=== PATIENT | male | born 1980 | race African-American/Black ===

== ENCOUNTER 2019-07-31 17:44 | Emergency (ER) | payer SELFPAY ==
--- NOTE | 2019-07-31 17:52 | EDM.PDOC ---
ED HPI GENERAL MEDICAL PROBLEM - General Chief Complaint: General Stated Complaint: MED CLEAR Time Seen by Provider: 07/31/19 17:50 Source of Information: Reports: Patient History Limitations: Reports: No Limitations - History of Present Illness INITIAL COMMENTS - FREE TEXT/NARRATIVE: HISTORY AND PHYSICAL: History of present illness: Patient is a 39-year-old male who presents to the emergency room by law enforcement for medical screening examination. Patient offers no current complaints and is uncooperative with assessment/history. He denies any systemic complaints. Denies any injury, trauma or falls. Review of systems: As per history of present illness and below otherwise all systems reviewed and negative. Past medical history: As per history of present illness and as reviewed below otherwise noncontributory. Surgical history: As per history of present illness and as reviewed below otherwise noncontributory. Social history: See social history for further information Family history: As per history of present illness and as reviewed below otherwise noncontributory. Physical exam: General: Well-developed and well-nourished 39-year-old male. Alert and oriented. Nontoxic appearing and in no acute distress. HEENT: Atraumatic, normocephalic, pupils equal and reactive bilaterally, negative for conjunctival pallor or scleral icterus, mucous membranes moist, trachea midline. No drooling or trismus noted. No meningeal signs. No hot potato voice noted. Lungs: Clear to auscultation, breath sounds equal bilaterally, chest nontender. Heart: S1S2, regular rate and rhythm without overt murmur Abdomen: Soft, nondistended, nontender. Negative for masses or hepatosplenomegaly. Negative for costovertebral tenderness. Pelvis: Stable nontender. Skin: Intact, warm, dry. No lesions or rashes noted. Extremities: Atraumatic, moves all extremities per self without difficulty or deficits, negative for cords or calf pain. Neurovascular unremarkable. Neuro: Awake, alert, oriented. Cranial nerves II through XII unremarkable. Cerebellum unremarkable. Motor and sensory unremarkable throughout. Exam nonfocal. Notes: Patient refuses any type of diagnostics. He refuses to allow for a blood sugar. Patient will be released into why enforcement custody. Supportive care measures were reviewed and discussed. Voices understanding and is agreeable to plan of care. Denies any further questions or concerns at this time. Diagnostics: Declines Therapeutics: Declined Prescription: None Impression: Encounter for medical screening exam Plan: 1. Follow-up with your primary care provider as we discussed. 2. Return to the ED as needed and as discussed. Definitive disposition and diagnosis as appropriate pending reevaluation and review of above. - Related Data Allergies Allergy/AdvReac Type Severity Reaction Status Date / Time No Known Allergies Allergy Verified 07/31/19 17:52 Home Meds: Home Meds . [Unable to Verify Home Med List] 07/31/19 [History] ED ROS GENERAL - Review of Systems Review Of Systems: ROS reveals no pertinent complaints other than HPI. ED EXAM, GENERAL - Physical Exam Exam: See Below (See dictation) Course - Vital Signs Last Recorded V/S: Last Vital Signs Temp Pulse Resp 20 07/31/19 17:48 BP 172/153 H 07/31/19 17:48 Pulse Ox Departure - Departure Time of Disposition: 17:59 Disposition: Home, Self-Care 01 Clinical Impression: Encounter for medical screening examination - Discharge Information Referrals: PCP,Unknown [Primary Care Provider] - Forms: ED Department Discharge Additional Instructions: The following information is given to patients seen in the emergency department who are being discharged to home. This information is to outline your options for follow-up care. We provide all patients seen in our emergency department with a follow-up referral. The need for follow-up, as well as the timing and circumstances, are variable depending upon the specifics of your emergency department visit. If you don't have a primary care physician on staff, we will provide you with a referral. We always advise you to contact your personal physician following an emergency department visit to inform them of the circumstance of the visit and for follow-up with them and/or the need for any referrals to a consulting specialist. The emergency department will also refer you to a specialist when appropriate. This referral assures that you have the opportunity for follow-up care with a specialist. All of these measure are taken in an effort to provide you with optimal care, which includes your follow-up. Under all circumstances we always encourage you to contact your private physician who remains a resource for coordinating your care. When calling for follow-up care, please make the office aware that this follow-up is from your recent emergency room visit. If for any reason you are refused follow-up, please contact the [facility] Emergency Department at and asked to speak to the emergency department charge nurse. [facility] [address] [place] [address] [facility] [address] [place] [id number] 1. Follow-up with your primary care provider as we discussed. 2. Return to the ED as needed and as discussed.
== END 2019-07-31 18:00 | disposition home or self-care (01) ==
LOC: MW.ED 17:44
DX: Z13.9 Encounter for screening, unspecified (principal)
CPT/HCPCS: 99283

== ENCOUNTER 2019-10-25 20:12 | Emergency (ER) | payer SELFPAY ==
[2019-10-25] MEDS ORDERED: Ketorolac 60 MG/2 ML SDV IM ONE (20:26)
--- NOTE | 2019-10-25 20:26 | EDM.PDOC ---
ED HPI GENERAL MEDICAL PROBLEM - General Chief Complaint: Back Pain or Injury Stated Complaint: BACK PAIN Time Seen by Provider: 10/25/19 20:24 Source of Information: Reports: Patient History Limitations: Reports: No Limitations - History of Present Illness INITIAL COMMENTS - FREE TEXT/NARRATIVE: HISTORY AND PHYSICAL: History of present illness: Patient is a 39-year-old male who presents to the emergency room with complaints of cough, generalized back pain and left elbow pain. 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 He states he has some generalized back pain and left elbow pain whenever he has to perform these activities. He states this has been ongoing for approximately a week but worse within the last 3-4 days. He denies any falls , injury or trauma associated with this pain. Patient states that the cough he is experiencing he describes as harsh and nonproductive. Patient denies any fever, chills, headache, change in vision, syncope or near syncope. Denies any chest pain, back pain, or shortness of breath. Denies any abdominal pain, nausea , vomiting, diarrhea, constipation or dysuria. Has not noted any blood in urine or stool. Patient has been eating and drinking appropriately. Review of systems: As per history of present illness and below otherwise all systems reviewed and negative. Past medical history: As per history of present illness and as reviewed below otherwise noncontributory. Surgical history: As per history of present illness and as reviewed below otherwise noncontributory. Social history: See social history for further information Family history: As per history of present illness and as reviewed below otherwise noncontributory. Physical exam: General: Well-developed and well-nourished 39-year-old male. Alert and oriented. Nontoxic appearing and in no acute distress. HEENT: Atraumatic, normocephalic, pupils equal and reactive bilaterally, negative for conjunctival pallor or scleral icterus, mucous membranes moist, trachea midline. No drooling or trismus noted. No meningeal signs. No hot potato voice noted. Lungs: Clear to auscultation, breath sounds equal bilaterally, chest nontender. Heart: S1S2, regular rate and rhythm without overt murmur Abdomen: Soft, nondistended, nontender. Negative for masses or hepatosplenomegaly. Negative for costovertebral tenderness. Pelvis is stable nontender. C-spine/Back: No pinpoint vertebral tenderness upon palpation. No crepitus, step -offs or obvious deformities. Patient is ambulatory into the emergency room without difficulty or deficit. Able to rock back on heels and walk on toes. Denies any urinary or fecal incontinence. Denies any numbness, tingling or saddle paresthesia. Skin: Intact, warm, dry. No lesions or rashes noted. Extremities: Atraumatic, moves all extremities per self without difficulty or deficits, negative for cords or calf pain. Neurovascular unremarkable. Neuro: Awake, alert, oriented. Cranial nerves II through XII unremarkable. Cerebellum unremarkable. Motor and sensory unremarkable throughout. Exam nonfocal. Notes: When assessing the patient's back pain there is no pinpoint vertebral tenderness. He states the pain is more muscular radiate across the low lumbar region bilaterally. This does not radiate. When he is describing this pain he states that he does not want to lift any more heavy boxes with his work related duties. During the physical exam he is able to move fully without any difficulty or deficits. Do not feel a lumbar x-ray is warranted at this time. Due to longevity of symptoms they will treat with azithromycin. Upon preparing the patient for discharge she states he is unhappy that he did not get an x-ray of his left elbow or low back. I did have a lengthy conversation with him that due to not having an injury and no bony tenderness with palpation this was not warranted at this time. Supportive care measures were reviewed and discussed. Voices understanding and is agreeable to plan of care. Denies any further questions or concerns at this time. Diagnostics: CBC, CMP, Troponin, EKG, CXR Therapeutics: Toradol IM Prescription: Diclofenac Zpak Impression: Bronchitis Lumbago Left elbow pain, overuse Plan: 1. Stop smoking 2. Take the medications as directed. May also take Tylenol as directed with these medications. Gentle heat to the painful areas. May want to consider wearing a compression sleeve for your elbow and back support brace to help with your back pain. 3. Follow up with your primary care provider as we discussed. Return to the ED as needed and as discussed. Definitive disposition and diagnosis as appropriate pending reevaluation and review of above. Left Arm Pain Score (Numeric/FACES): 4 back Pain Score (Numeric/FACES): 5 - Related Data Allergies Allergy/AdvReac Type Severity Reaction Status Date / Time No Known Allergies Allergy Verified 10/25/19 20:16 Home Meds: Home Meds . [No Known Home Meds] 10/25/19 [History] Past Medical History - Past Health History Medical/Surgical History: Denies Medical/Surgical History Cardiovascular History: Reports: Hypertension Respiratory History: Reports: Other (See Below) Other Respiratory History: smoker Gastrointestinal History: Reports: None Genitourinary History: Reports: None Musculoskeletal History: Reports: None Neurological History: Reports: None Psychiatric History: Reports: None Endocrine/Metabolic History: Reports: None Hematologic History: Reports: None Dermatologic History: Reports: None - Infectious Disease History Infectious Disease History: Reports: Chicken Pox Social & Family History - Family History Family Medical History: Noncontributory - Tobacco Use Smoking Status *Q: Current Every Day Smoker Years of Tobacco use: 25 Packs/Tins Daily: 1 - Recreational Drug Use Recreational Drug Use: No ED ROS GENERAL - Review of Systems Review Of Systems: Comprehensive ROS is negative, except as noted in HPI. ED EXAM, GENERAL - Physical Exam Exam: See Below (See dictation) Course - Vital Signs Last Recorded V/S: Last Vital Signs Temp 96.6 F 10/25/19 20:17 Pulse 84 10/25/19 20:17 Resp 18 10/25/19 20:17 BP 161/118 H 10/25/19 20:17 Pulse Ox 94 L 10/25/19 20:17 - Orders/Labs/Meds Orders: Active Orders 24 hr Category Date Time Status EKG 12 Lead [EKG Documentation Completion] [RC] STAT Care 10/25/19 20:23 Active Chest 2V [CR] Stat Exams 10/25/19 20:23 Taken Labs: Laboratory Tests 10/25/19 10/25/19 Range/Units 21:00 21:00 WBC 2.93 L (4.0-11.0) K/uL RBC 5.03 (4.50-5.90) M/uL Hgb 16.0 (13.0-17.0) g/dL Hct 44.3 (38.0-50.0) % MCV 88.1 (80.0-98.0) fL MCH 31.8 (27.0-32.0) pg MCHC 36.1 (31.0-37.0) g/dL RDW Std Deviation 40.5 (28.0-62.0) fl RDW Coeff of Liliana 13 (11.0-15.0) % Plt Count 244 (150-400) K/uL MPV 10.00 (7.40-12.00) fL Neut % (Auto) 26.7 L (48.0-80.0) % Lymph % (Auto) 60.8 H (16.0-40.0) % [place] % (Auto) 11.9 (0.0-15.0) % Eos % (Auto) 0.3 (0.0-7.0) % Baso % (Auto) 0.3 (0.0-1.5) % Neut # (Auto) 0.8 L (1.4-5.7) K/uL Lymph # (Auto) 1.8 (0.6-2.4) K/uL [place] # (Auto) 0.4 (0.0-0.8) K/uL Eos # (Auto) 0.0 (0.0-0.7) K/uL Baso # (Auto) 0.0 (0.0-0.1) K/uL Nucleated RBC % 0.0 /100WBC Nucleated RBCs # 0 K/uL Sodium 135 L (136-148) mmol/L Potassium 3.7 (3.5-5.1) mmol/L Chloride 96 L (98-107) mmol/L Carbon Dioxide 28.5 (21.0-32.0) mmol/L BUN 13 (7.0-18.0) mg/dL Creatinine 1.5 H (0.8-1.3) mg/dL Est Cr Clr Drug Dosing TNP Estimated GFR (MDRD) > 60.0 ml/min Glucose 148 H (74-106) mg/dL Calcium 8.2 L (8.5-10.1) mg/dL Total Bilirubin 0.5 (0.2-1.0) mg/dL AST 80 H (15-37) IU/L ALT 58 (14-63) IU/L Alkaline Phosphatase 103 (46-116) U/L Troponin I < 0.050 (0.000-0.056) ng/mL Total Protein 8.0 (6.4-8.2) g/dL Albumin 3.6 (3.4-5.0) g/dL Globulin 4.4 H (2.6-4.0) g/dL Albumin/Globulin Ratio 0.8 L (0.9-1.6) Meds: Medications Discontinued Medications Generic Name Dose Route Start Last Admin Trade Name Shaan PRN Reason Stop Dose Admin Ketorolac Tromethamine 60 mg 10/25/19 20:26 10/25/19 20:37 Toradol IM 10/25/19 20:27 60 mg ONETIME ONE Administration Departure - Departure Time of Disposition: 21:45 Disposition: Home, Self-Care 01 Clinical Impression: Bronchitis Lumbago Qualifiers: Chronicity: unspecified Back pain laterality: bilateral Sciatica presence: without sciatica Qualified Code(s): M54.5 - Low back pain Overuse syndrome of elbow Qualifiers: Encounter type: initial encounter Laterality: left Qualified Code(s): S56.912A - Strain of unspecified muscles, fascia and tendons at forearm level, left arm, initial encounter - Discharge Information Referrals: PCP,None [Primary Care Provider] - Forms: ED Department Discharge Additional Instructions: The following information is given to patients seen in the emergency department who are being discharged to home. This information is to outline your options for follow-up care. We provide all patients seen in our emergency department with a follow-up referral. The need for follow-up, as well as the timing and circumstances, are variable depending upon the specifics of your emergency department visit. If you don't have a primary care physician on staff, we will provide you with a referral. We always advise you to contact your personal physician following an emergency department visit to inform them of the circumstance of the visit and for follow-up with them and/or the need for any referrals to a consulting specialist. The emergency department will also refer you to a specialist when appropriate. This referral assures that you have the opportunity for follow-up care with a specialist. All of these measure are taken in an effort to provide you with optimal care, which includes your follow-up. Under all circumstances we always encourage you to contact your private physician who remains a resource for coordinating your care. When calling for follow-up care, please make the office aware that this follow-up is from your recent emergency room visit. If for any reason you are refused follow-up, please contact the [facility] Emergency Department at and asked to speak to the emergency department charge nurse. [facility] [address] [place] [address] [facility] [address] [place] [id number] 1. Stop smoking 2. Take the medications as directed. May also take Tylenol as directed with these medications. Gentle heat to the painful areas. May want to consider wearing a compression sleeve for your elbow and back support brace to help with your back pain. 3. Follow up with your primary care provider as we discussed. Return to the ED as needed and as discussed. - My Orders Last 24 Hours: My Active Orders 10/25/19 20:23 EKG 12 Lead [EKG Documentation Completion] [RC] STAT Chest 2V [CR] Stat - Assessment/Plan Last 24 Hours: My Active Orders 10/25/19 20:23 EKG 12 Lead [EKG Documentation Completion] [RC] STAT Chest 2V [CR] Stat
[2019-10-25 21:35] LABS: BLOOD UREA NITROGEN,BUN 13 mg/dL (7.0-18.0); CARBON DIOXIDE,CO2 28.5 mmol/L (21.0-32.0); CHLORIDE,CL 96 mmol/L (98-107); GLUCOSE RANDOM 148 mg/dL (74-106); POTASSIUM,K 3.7 mmol/L (3.5-5.1); SODIUM,NA 135 mmol/L (136-148)
--- NOTE | 2019-10-25 22:05 | CR ---
Indication: Chest pain Technique: Chest 2 views Comparison: None Findings: Cardiovascular and mediastinum: Heart size and vasculature are normal in caliber and appearance. Lungs and pleural spaces: Lungs are clear. No sign of infiltrate or mass. No sign of pleural effusion. No pneumothorax. Bones and soft tissues: No significant findings. Impression: Unremarkable two view chest. Dictated by Dwayne Maldonado MD @ Oct 25 2019 10:02PM Signed by Dr. Dwayne Maldonado @ Oct 25 2019 10:04PM
== END 2019-10-25 22:01 | disposition home or self-care (01) ==
LOC: MW.ED 20:12
DX: J40 Bronchitis, not specified as acute or chronic (principal); M54.5 Low back pain; M70.80 Other soft tissue disorders related to use, overuse and pressure of unspecified site; F17.210 Nicotine dependence, cigarettes, uncomplicated
CPT/HCPCS: 36415; 71046; 80053; 84484; 85025; 87804; 93005; 96372; 99284; J1885; 99283

== ENCOUNTER 2019-11-09 02:46 | Emergency (ER) | payer SELFPAY ==
[2019-11-09] MEDS ORDERED: Sodium Chloride 0.9% 2.5 ML Syringe FLUSH PRN (03:08)
[2019-11-09] MEDS ORDERED: Alum Hydrox/Mag Hydrox/Simeth 15 ML, Metoclopramide 5 MG, Lidocaine 2% 5 ML PO ONE ×3 (03:08)
[2019-11-09] MEDS ORDERED: Pantoprazole 80 MG in Sodium Chloride 0.9% 20 ML IVPUSH ONE (03:08)
[2019-11-09] MEDS ORDERED: Sodium Chloride 0.9% 10 ML Syringe FLUSH PRN (03:08)
[2019-11-09] MEDS ORDERED: Ondansetron 4 MG/2 ML SDV IVPUSH ONE (03:08)
[2019-11-09] MEDS ORDERED: MVI, Adult with Vitamin K 10 ML, Thiamine 100 MG, Folic Acid 1 MG in Sodium Chloride 0.... IV ONE ×4 (03:08)
--- NOTE | 2019-11-09 03:14 | EDM.PDOC ---
ED HPI GENERAL MEDICAL PROBLEM - General Chief Complaint: Chest Pain Stated Complaint: COUGHING Time Seen by Provider: 11/09/19 03:02 - History of Present Illness INITIAL COMMENTS - FREE TEXT/NARRATIVE: HISTORY AND PHYSICAL: History of present illness: The patient is a 39-year-old male who presents with complaints of mid chest burning like when he had bronchitis which has been ongoing since Saturday, 2-1/2 days. He says he doesn't have any abdominal pain fevers and is not really coughing just intermittently and he has this burning like sensation which is very uncomfortable in his mid chest. It does not radiate to his arms jaw and it does not localize right or left. He also admits to me that he is a daily drinker of alcohol and he vomits intermittently pretty much daily and his last episode of vomiting was right before he came here. He does not take any over-the -counter antacids or Pepto-Bismol to try to help with his acid stomach. He says that he last drank about 18-24 hours ago. He says he has no flank pain he is not passing out or blacking out and he has no cardiac history. He has no history of diabetes and he says that he knows that his blood pressure is elevated but he has not seen a provider for follow-up area area he says that when he vomits the pain does get worse. He says he feels like he can't take a deep breath and he feels similarly to when he had bronchitis because his lungs were burning at that time. Review of systems: As per history of present illness and below otherwise all systems reviewed and negative. Past medical history: As per history of present illness and as reviewed below otherwise noncontributory. Surgical history: As per history of present illness and as reviewed below otherwise noncontributory. Social history: No reported history of drug or alcohol abuse. Family history: As per history of present illness and as reviewed below otherwise noncontributory. Physical exam: General: Well-developed well-nourished man who is nontoxic and very exaggerated on my exam and vital signs are noted by me HEENT: Atraumatic, normocephalic, pupils reactive, negative for conjunctival pallor or scleral icterus, mucous membranes moist, throat clear, neck supple, nontender, trachea midline. Lungs: Clear to auscultation, breath sounds equal bilaterally, chest nontender. No wheezing stridor or work of breathing. There is no reproducible tenderness with palpation of the chest wall and no crepitus is appreciated defects or deformities. Heart: S1S2, regular, negative for clicks, rubs, or JVD. Abdomen: Soft, nondistended, nontender. Negative for masses or hepatosplenomegaly. Negative for costovertebral tenderness. Pelvis: Stable nontender. Genitourinary: Deferred. Rectal: Deferred. Extremities: Atraumatic, negative for cords or calf pain. Neurovascular unremarkable. No pedal edema or leg asymmetry Neuro: Awake, alert, oriented. Cranial nerves II through XII unremarkable. Cerebellum unremarkable. Motor and sensory unremarkable throughout. Exam nonfocal. He is not tremulous or shaky on my evaluation Diagnostics: EKG CBC CMP amylase lipase INR magnesium troponin alcohol level chest x-ray Therapeutics: IV O2 monitor IV fluids banana bag protonix Zofran GI cocktail He is feeling much improved here in the ED and is aware of all testing results and need for follow-up and I will give him prescription for Protonix Carafate and Zofran. I've advised him on dietary management and to reduce Paul foods fatty foods alcohol and caffeine consumption. Impression: Atypical chest pain/esophagitis like pain, history of episodic vomiting and alcohol use and abuse Definitive disposition and diagnosis as appropriate pending reevaluation and review of above. - Related Data Allergies Allergy/AdvReac Type Severity Reaction Status Date / Time No Known Allergies Allergy Verified 11/09/19 02:51 Home Meds: Home Meds . [No Known Home Meds] 10/25/19 [History] Past Medical History - Past Health History Medical/Surgical History: Denies Medical/Surgical History Cardiovascular History: Reports: Hypertension Respiratory History: Reports: Other (See Below) Other Respiratory History: smoker Gastrointestinal History: Reports: None Genitourinary History: Reports: None Musculoskeletal History: Reports: None Neurological History: Reports: None Psychiatric History: Reports: None Endocrine/Metabolic History: Reports: None Hematologic History: Reports: None Dermatologic History: Reports: None - Infectious Disease History Infectious Disease History: Reports: Chicken Pox Social & Family History - Family History Family Medical History: Noncontributory - Tobacco Use Smoking Status *Q: Current Every Day Smoker Years of Tobacco use: 25 Packs/Tins Daily: 0.5 ED ROS GENERAL - Review of Systems Review Of Systems: Comprehensive ROS is negative, except as noted in HPI. ED EXAM, GENERAL - Physical Exam Exam: See Below (see Dictation) Course - Vital Signs Last Recorded V/S: Last Vital Signs Temp 36.4 C 11/09/19 04:32 Pulse 84 11/09/19 04:32 Resp 20 11/09/19 04:32 BP 140/99 H 11/09/19 04:32 Pulse Ox 95 11/09/19 04:32 - Orders/Labs/Meds Orders: Active Orders 24 hr Category Date Time Status Cardiac Monitoring [RC] . DIRECTED Care 11/09/19 03:02 Active EKG Documentation Completion [RC] STAT Care 11/09/19 03:02 Active Oxygen Therapy, ED [RC] ASDIRECTED Care 11/09/19 03:02 Active Pulse Oximetry [RC] ASDIRECTED Care 11/09/19 03:02 Active Sodium Chloride 0.9% [Normal Saline] 500 ml Med 11/09/19 03:15 Active IV STAT Sodium Chloride 0.9% [Saline Flush] Med 11/09/19 03:08 Active 10 ml FLUSH ASDIRECTED PRN Sodium Chloride 0.9% [Saline Flush] Med 11/09/19 03:08 Active 2.5 ml FLUSH ASDIRECTED PRN Saline Lock Insert [OM.PC] Stat Oth 11/09/19 03:07 Ordered Medication Orders Sodium Chloride (Normal Saline) 500 mls @ 999 mls/hr IV STAT MARY Last Admin: 11/09/19 03:27 Dose: 999 mls/hr Sodium Chloride (Saline Flush) 10 ml FLUSH ASDIRECTED PRN PRN Reason: Keep Vein Open Sodium Chloride (Saline Flush) 2.5 ml FLUSH ASDIRECTED PRN PRN Reason: Keep Vein Open Labs: Laboratory Tests 11/09/19 11/09/19 11/09/19 Range/Units 02:50 02:50 02:50 WBC 5.17 (4.0-11.0) K/uL RBC 5.15 (4.50-5.90) M/uL Hgb 16.6 (13.0-17.0) g/dL Hct 45.4 (38.0-50.0) % MCV 88.2 (80.0-98.0) fL MCH 32.2 H (27.0-32.0) pg MCHC 36.6 (31.0-37.0) g/dL RDW Std Deviation 42.0 (28.0-62.0) fl RDW Coeff of Liliana 13 (11.0-15.0) % Plt Count 349 (150-400) K/uL MPV 10.10 (7.40-12.00) fL Neut % (Auto) 34.4 L (48.0-80.0) % Lymph % (Auto) 48.0 H (16.0-40.0) % [place] % (Auto) 16.2 H (0.0-15.0) % Eos % (Auto) 0.2 (0.0-7.0) % Baso % (Auto) 1.2 (0.0-1.5) % Neut # (Auto) 1.8 (1.4-5.7) K/uL Lymph # (Auto) 2.5 H (0.6-2.4) K/uL [place] # (Auto) 0.8 (0.0-0.8) K/uL Eos # (Auto) 0.0 (0.0-0.7) K/uL Baso # (Auto) 0.1 (0.0-0.1) K/uL Nucleated RBC % 0.0 /100WBC Nucleated RBCs # 0 K/uL INR 0.99 Sodium 142 (136-148) mmol/L Potassium 4.0 (3.5-5.1) mmol/L Chloride 105 (98-107) mmol/L Carbon Dioxide 25.7 (21.0-32.0) mmol/L BUN 19 H (7.0-18.0) mg/dL Creatinine 1.5 H (0.8-1.3) mg/dL Est Cr Clr Drug Dosing TNP Estimated GFR (MDRD) 51.6 ml/min Glucose 106 (74-106) mg/dL Calcium 8.2 L (8.5-10.1) mg/dL Magnesium 1.9 (1.8-2.4) mg/dL Total Bilirubin 0.9 (0.2-1.0) mg/dL AST 69 H (15-37) IU/L ALT 63 (14-63) IU/L Alkaline Phosphatase 99 (46-116) U/L Troponin I < 0.050 (0.000-0.056) ng/mL Total Protein 7.5 (6.4-8.2) g/dL Albumin 3.6 (3.4-5.0) g/dL Globulin 3.9 (2.6-4.0) g/dL Albumin/Globulin Ratio 0.9 (0.9-1.6) Amylase 106 (25-115) U/L Lipase 210 (73-393) U/L Ethyl Alcohol 260 mg/dL Meds: Medications Generic Name Dose Route Start Last Admin Trade Name Freq PRN Reason Stop Dose Admin Sodium Chloride 500 mls @ 999 mls/hr 11/09/19 03:15 11/09/19 03:27 Normal Saline IV 999 mls/hr STAT MARY Administration Sodium Chloride 10 ml 11/09/19 03:08 Saline Flush FLUSH ASDIRECTED PRN Keep Vein Open Sodium Chloride 2.5 ml 11/09/19 03:08 Saline Flush FLUSH ASDIRECTED PRN Keep Vein Open Discontinued Medications Generic Name Dose Route Start Last Admin Trade Name Freq PRN Reason Stop Dose Admin Al Hydroxide/Mg Hydroxide 15 0 ml 11/09/19 03:08 11/09/19 03:27 ml/ Metoclopramide HCl 5 mg/ PO 11/09/19 03:09 1 each Lidocaine HCl 5 ml ONETIME ONE Administration Multivitamins/Minerals 10 ml/ 1,011.2 mls @ 999 mls/hr 11/09/19 03:08 03:35 Thiamine HCl 100 mg/ Folic IV 11/09/19 04:08 999 mls/hr Acid 1 mg/ Sodium Chloride ONETIME ONE Administration Pantoprazole Sodium 80 mg/ 20 mls @ 420 mls/hr 11/09/19 03:08 11/09/19 03:27 Sodium Chloride IVPUSH 11/09/19 03:10 420 mls/hr ONETIME ONE Administration Ondansetron HCl 4 mg 11/09/19 03:08 11/09/19 03:27 Zofran IVPUSH 11/09/19 03:09 4 mg ONETIME ONE Administration Departure - Departure Time of Disposition: 04:52 Disposition: Home, Self-Care 01 Condition: Good Clinical Impression: Atypical chest pain, Alcohol abuse Vomiting Qualifiers: Vomiting type: unspecified Vomiting Intractability: non-intractable Nausea presence: with nausea Qualified Code(s): R11.2 - Nausea with vomiting, unspecified - Discharge Information Referrals: PCP,None [Primary Care Provider] - Forms: ED Department Discharge Additional Instructions: The following information is given to patients seen in the emergency department who are being discharged to home. This information is to outline your options for follow-up care. We provide all patients seen in our emergency department with a follow-up referral. The need for follow-up, as well as the timing and circumstances, are variable depending upon the specifics of your emergency department visit. If you don't have a primary care physician on staff, we will provide you with a referral. We always advise you to contact your personal physician following an emergency department visit to inform them of the circumstance of the visit and for follow-up with them and/or the need for any referrals to a consulting specialist. The emergency department will also refer you to a specialist when appropriate. This referral assures that you have the opportunity for followup care with a specialist. All of these measure are taken in an effort to provide you with optimal care, which includes your followup. Under all circumstances we always encourage you to contact your private physician who remains a resource for coordinating your care. When calling for followup care, please make the office aware that this follow-up is from your recent emergency room visit. If for any reason you are refused follow-up, please contact the [facility] emergency department at and ask to speak to the emergency department charge nurse. [facility] Primary care- Internal Medicine and Family [facility] [address] [place] [id number] [facility] Specialty Care-General Surgery Professional Building [address] [place] [id number] Please avoid alcohol consumption and caffeine use and take all medications as prescribed . Use Zofran as needed for nausea and vomiting. Please call and connect with one of our clinic providers for further evaluation and care of these symptoms. Push hydration such as water juices and Gatorade and return to ER as needed and as discussed Sepsis Event Note - Evaluation Sepsis Screening Result: No Definite Risk - Focused Exam Vital Signs: Vital Signs Temp Pulse Resp BP Pulse Ox Pulse Ox 11/09/19 04:32 36.4 C 84 20 140/99 H 95 11/09/19 03:02 98 11/09/19 02:47 36.1 C 87 20 164/107 H 96 Date Exam was Performed: 11/09/19 Time Exam was Performed: 04:51 - My Orders Last 24 Hours: My Active Orders 11/09/19 03:02 Cardiac Monitoring [RC] . DIRECTED EKG Documentation Completion [RC] STAT Oxygen Therapy, ED [RC] ASDIRECTED Pulse Oximetry [RC] ASDIRECTED 11/09/19 03:07 Saline Lock Insert [OM.PC] Stat 11/09/19 03:08 Sodium Chloride 0.9% [Saline Flush] 10 ml FLUSH ASDIRECTED PRN Sodium Chloride 0.9% [Saline Flush] 2.5 ml FLUSH ASDIRECTED PRN 11/09/19 03:15 Sodium Chloride 0.9% [Normal Saline] 500 ml IV STAT - Assessment/Plan Last 24 Hours: My Active Orders 11/09/19 03:02 Cardiac Monitoring [RC] . DIRECTED EKG Documentation Completion [RC] STAT Oxygen Therapy, ED [RC] ASDIRECTED Pulse Oximetry [RC] ASDIRECTED 11/09/19 03:07 Saline Lock Insert [OM.PC] Stat 11/09/19 03:08 Sodium Chloride 0.9% [Saline Flush] 10 ml FLUSH ASDIRECTED PRN Sodium Chloride 0.9% [Saline Flush] 2.5 ml FLUSH ASDIRECTED PRN 11/09/19 03:15 Sodium Chloride 0.9% [Normal Saline] 500 ml IV STAT
[2019-11-09] MEDS ORDERED: Sodium Chloride 0.9% 500 ML IV SCH (03:15)
[2019-11-09 03:25] LABS: BLOOD UREA NITROGEN,BUN 19 mg/dL (7.0-18.0); CARBON DIOXIDE,CO2 25.7 mmol/L (21.0-32.0); CHLORIDE,CL 105 mmol/L (98-107); GLUCOSE RANDOM 106 mg/dL (74-106); LIPASE 210 U/L (73-393); SODIUM,NA 142 mmol/L (136-148)
--- NOTE | 2019-11-09 04:36 | CR ---
HISTORY: Shortness of breath. COMPARISON: 10/25/2019. FINDINGS: Single frontal view of the chest. The lungs are clear. Costophrenic angles sharp. Heart size and pulmonary vascularity are within normal limits. Bony thorax intact. Dictated by Eda Lyon MD @ Nov 09 2019 4:35AM Signed by Dr. Eda Lyon @ Nov 09 2019 4:35AM
== END 2019-11-09 05:01 | disposition home or self-care (01) ==
LOC: MW.ED 02:46
DX: R07.89 Other chest pain (principal); F10.10 Alcohol abuse, uncomplicated; R11.2 Nausea with vomiting, unspecified; I10 Essential (primary) hypertension; F17.210 Nicotine dependence, cigarettes, uncomplicated; Y90.8 Blood alcohol level of 240 mg/100 ml or more
CPT/HCPCS: 36415; 71045; 80053; 80320; 82150; 83690; 83735; 84484; 85025; 85610; 93005; 96365; 96375; 99285; A9270; C9113; J2405; J3411; J7030; J7040; G0480

== ENCOUNTER 2019-11-24 22:52 | Emergency (ER) | payer SELFPAY ==
[2019-11-24] MEDS ORDERED: Diphtheria,Pertussis(Acell),Tetanus Vaccine 0.5 ML Syringe IM ONE (23:16)
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
== END 2019-11-24 23:35 ==
LOC: MW.ED 22:52
DX: S00.83XA Contusion of other part of head, initial encounter (principal); S60.511A Abrasion of right hand, initial encounter; S60.512A Abrasion of left hand, initial encounter; I10 Essential (primary) hypertension; F17.210 Nicotine dependence, cigarettes, uncomplicated; W00.0XXA Fall on same level due to ice and snow, initial encounter
CPT/HCPCS: 90471; 99282; 99283

== ENCOUNTER 2020-07-30 02:12 | Emergency (ER) | payer MEDICAID ==
--- NOTE | 2020-07-30 02:58 | EDM.PDOC ---
ED HPI GENERAL MEDICAL PROBLEM - General Chief Complaint: General Stated Complaint: BLOOD PRESSURE CONCERNS Time Seen by Provider: 07/30/20 02:13 Source of Information: Reports: Patient, Old Records History Limitations: Reports: No Limitations - History of Present Illness INITIAL COMMENTS - FREE TEXT/NARRATIVE: 40-year-old male with a past medical history of alcohol abuse and anxiety and hypertension presenting for evaluation of erectile dysfunction. He is requesting a prescription for either Cialis or Viagra. He states that he was too embarrassed to bring this topic up to his family doctor at his most recent clinic appointment several days ago. He has no complaints at this point, denies any chest discomfort, shortness of breath, headache, vision changes, or lower extremity edema. He has been taking his antihypertensive medications as prescribed. Past medical history: Reviewed, no additional pertinent history. Surgical history: Reviewed in system, no additional pertinent history. Social history: Reviewed in system, no additional pertinent history. Family history: Reviewed in system, no additional pertinent history. PHYSICAL EXAM Vital signs reviewed. Nursing notes reviewed. Constitutional: Awake, alert, non-distressed. Head: Normocephalic, atraumatic. Eyes: EOMI, conjunctiva normal, no discharge, no scleral icterus. Ears, Nose, Throat: External ears and nose normal, moist oral mucosa. Cardiovascular: 2+ radial pulse, capillary refill less than 2 seconds. RRR no MRG Pulmonary: normal work of breathing, no accessory muscle use. CTA BL Abdomen/GI: Soft, nontender, nondistended, no guarding or rigidity, no masses. Musculoskeletal: No deformities. Integumentary: Appropriate color for ethnicity, warm, dry, no pallor or jaundice, no rash. Neurologic: Alert, answering questions appropriately, normal speech, no facial droop, moving all extremities well. Psychiatric: Appropriate mood and affect, normal thought process. - Related Data Allergies Allergy/AdvReac Type Severity Reaction Status Date / Time No Known Allergies Allergy Verified 07/30/20 02:27 Home Meds: Home Meds ALPRAZolam [Xanax] 2 mg PO ASDIRECTED PRN 07/30/20 [History] amLODIPine [Norvasc] 5 mg PO DAILY 07/30/20 [History] Past Medical History - Past Health History Medical/Surgical History: Denies Medical/Surgical History HEENT History: Reports: None Cardiovascular History: Reports: Hypertension Respiratory History: Reports: Other (See Below) Other Respiratory History: smoker Gastrointestinal History: Reports: None Genitourinary History: Reports: None Musculoskeletal History: Reports: None Neurological History: Reports: None Psychiatric History: Reports: None Endocrine/Metabolic History: Reports: None Hematologic History: Reports: None Dermatologic History: Reports: None - Infectious Disease History Infectious Disease History: Reports: Chicken Pox - Past Surgical History Musculoskeletal Surgical History: Reports: Other (See Below) Other Musculoskeletal Surgeries/Procedures:: tib fib fx in 2011 Social & Family History - Family History Family Medical History: Noncontributory - Tobacco Use Smoking Status *Q: Former Smoker Used Tobacco, but Quit: Yes Month/Year Tobacco Last Used: 2018 - Caffeine Use Caffeine Use: Reports: None - Recreational Drug Use Recreational Drug Use: No ED ROS GENERAL - Review of Systems Review Of Systems: See Below ED EXAM, GENERAL - Physical Exam Exam: See Below Course - Vital Signs Text/Narrative:: 40-year-old male presenting with request for erectile dysfunction medication prescription. I explained that this is best handled by primary medicine clinic/family medicine physician. I explained that this is not something that we typically prescribe in the emergency department and needs to be prescribed in the primary care setting given that he recently started antihypertensive medications. I encouraged the patient to call his family medicine clinic on Saturday to see if he can have a follow-up appointment scheduled, also provided recommendations about telemedicine primary care practices that would be better suited for his request. No evidence of an acute emergency medical condition at this point. Stable to discharge home with outpatient primary care follow-up. Last Recorded V/S: Last Vital Signs Temp 36.6 C 07/30/20 02:24 Pulse 100 07/30/20 03:04 Resp 18 07/30/20 03:04 BP 168/107 H 07/30/20 03:04 Pulse Ox 97 07/30/20 03:04 Departure - Departure Time of Disposition: 02:57 Disposition: Home, Self-Care 01 Condition: Good Clinical Impression: Erectile dysfunction Qualifiers: Erectile dysfunction type: unspecified Qualified Code(s): N52.9 - Male erectile dysfunction, unspecified Hypertension Qualifiers: Hypertension type: essential hypertension Qualified Code(s): I10 - Essential (primary) hypertension - Discharge Information *PRESCRIPTION DRUG MONITORING PROGRAM REVIEWED*: Not Applicable *COPY OF PRESCRIPTION DRUG MONITORING REPORT IN PATIENT PAZ: Not Applicable Instructions: Erectile Dysfunction, Managing Your Hypertension Referrals: Flora Steiner NP [Primary Care Provider] - Forms: ED Department Discharge Additional Instructions: I recommend you follow-up with your family medicine clinic in the next few days for further evaluation of your concerns. Please return the emergency department immediately if your symptoms worsen or if you feel worse. Thank you for choosing the [facility] emergency department in [place] for your medical needs today. It was a pleasure caring for you. The following information is given to patients seen in the emergency department who are being discharged. This information is to outline your options for follow-up care. We provide all patients seen in our emergency department with a follow-up referral. The need for follow-up, as well as the timing and circumstances, are variable depending upon the specifics of your emergency department visit. If you don't have a primary care physician on staff, we will provide you with a referral. We always advise you to contact your personal physician following an emergency department visit to inform them of the circumstance of the visit and for follow-up with them and/or the need for any referrals to a consulting specialist. The emergency department will also refer you to a specialist when appropriate. This referral assures that you have the opportunity for follow-up care with a specialist. All of these measure are taken in an effort to provide you with optimal care, which includes your follow-up. Under all circumstances we always encourage you to contact your private physician who remains a resource for coordinating your care. When calling for follow-up care, please make the office aware that this follow-up is from your recent emergency room visit. If for any reason you are refused follow-up, please contact the [facility] Emergency Department at and asked to speak to the emergency department charge nurse. If you do not have a primary care physician that is caring for you, you can contact these clinics below to set up an appointment to establish care: [facility] - Primary Care [address] [place] [id number] [facility] [address] [place] [id number] Sepsis Event Note (ED) - Evaluation Sepsis Screening Result: No Definite Risk - Focused Exam Vital Signs: Vital Signs Temp Pulse Resp BP Pulse Ox 07/30/20 03:04 100 18 168/107 H 97 07/30/20 02:33 166/114 H 07/30/20 02:24 36.6 C 104 H 18 181/119 H 98
== END 2020-07-30 03:05 | disposition home or self-care (01) ==
LOC: MW.ED 02:12
DX: N52.9 Male erectile dysfunction, unspecified (principal); I10 Essential (primary) hypertension; Z79.899 Other long term (current) drug therapy; Z87.891 Personal history of nicotine dependence
CPT/HCPCS: 99282; 99283

== ENCOUNTER 2020-08-26 05:41 | Emergency (ER) | payer MEDICAID ==
[2020-08-26] MEDS ORDERED: amLODIPine 5 MG Tab PO ONE (06:02)
--- NOTE | 2020-08-26 06:07 | EDM.PDOC ---
ED HPI GENERAL MEDICAL PROBLEM - General Chief Complaint: Cardiovascular Problem Stated Complaint: HBP Time Seen by Provider: 08/26/20 06:01 - History of Present Illness INITIAL COMMENTS - FREE TEXT/NARRATIVE: CHIEF COMPLAINT(S): Hypertension HISTORY OF PRESENT ILLNESS: This is a 40-year-old man with a past medical history of hypertension and erectile dysfunction who comes to the emergency department with a chief complaint of hypertension. Per the patient: He smelled something odd in his penitentiary cell and he started to feel like he was short of breath. He states that it immediately upon exiting the penitentiary cell he felt better and his symptoms resolved. He denies any chest pain, diaphoresis, nausea or vomiting. He states that they checked his blood pressure and is found to be elevated with systolics in the 170s. This was reiterated by the penitentiary caregiver who is in presents. He currently denies any headache, blurry vision, numbness, tingling, or weakness. He denies any current chest pain, shortness of breath. He denies any urinary issues. He denies any other symptoms. The patient also has a history of alcohol abuse. His last drink was approximately 8 days ago. He denies any history of alcohol withdrawal or alcohol withdrawal seizures. REVIEW OF SYSTEMS: Constitutional: Denies fever, chills. Eyes: Denies eye pain Ears, Nose, Mouth, & Throat: Denies earache, blurry vision Cardiovascular: Denies chest pain Respiratory: Denies shortness of breath Gastrointestinal: Denies Nausea, vomiting, diarrhea, hematochezia. Genitourinary: Denies hematuria Skin:Denies a rash Neurological: Denies blurred vision, numbness, tingling, weakness Psychiatric: Denies depression PAST MEDICAL HISTORY: As per history of present illness and as reviewed below otherwise noncontributory. SURGICAL HISTORY: As per history of present illness and as reviewed below otherwise noncontributory. SOCIAL HISTORY: As per history of present illness and as reviewed below otherwise noncontributory. FAMILY HISTORY: As per history of present illness and as reviewed below otherwise noncontributory. EXAMINATION OF ORGAN SYSTEMS/BODY AREAS: Constitutional: Blood pressure was 177/128, heart rate 99, respiratory rate 18 with an oxygen saturation 98% on room air. Temperature 37.2 General: Overall well-appearing man who is in no acute distress Psychiatric: Appropriate mood and affect. Appears mildly anxious. Pupils are e qual round and reactive to light. Extraocular movements intact. Eyes: No scleral icterus or conjunctival erythema ENMT: Moist mucous membranes. No pharyngeal erythema tongue protrudes midline. No tongue fasciculations. Cardiovascular: Regular, rate, and rhythym. No gallops, murmurs, or rubs. Bilateral upper extremity pulses symmetric and intact. No peripheral edema. No JVD. Respiratory: Lungs clear to auscultation bilaterally. No wheezes, rales, or rhonchi. Gastrointestinal: Soft, non-tender, non-distended. Normoactive bowel sounds Genitourinary: No suprapubic tenderness Musculoskeletal: Normal range of motion. Skin: No lesions or abrasions. Neurological: AOx4. CN grossly intact. Stregth 5/5 in bilateral upper and lower extremity. Sensation is intact bilaterally in upper and lower extremity. Gait appears normal. MEDICAL DECISION MAKING AND COURSE IN THE ED WITH INTERPRETATION/REVIEW OF DIAGNOSTIC STUDIES: This is a 40-year-old man with a past medical history of hypertension who comes to the emergency department with hypertension after episode of what appears to be a panic attack while in his penitentiary cell who is currently asymptomatic with continued hypertension. I did review the patient's chart and he just recently started on amlodipine 5 mg p.o. His systolics have been in the similar range in the past. At this time I do believe this is secondary to hypertension and likely exacerbated by anxiety. I will provide the patient with 5 mg of amlodipine p.o. and increase his home dose to 10 mg daily given the continued hypertension at the patient has been on this medication for approximately 2 weeks. I did discuss this with the patient and his caregiver at bedside. I do not believe any other labs or imaging are indicated at this time. He is to return for any new or worsening symptoms. Patient was amenable to discharge. DISPOSITION: The patient was discharged to penitentiary in stable condition. The patient will follow-up with his primary care physician as needed CONDITION: Good PROCEDURES: None FINAL IMPRESSION(S)/DIAGNOSES: 1. Uncontrolled hypertension Ruy Barron M.D. - Related Data Allergies Allergy/AdvReac Type Severity Reaction Status Date / Time No Known Allergies Allergy Verified 08/26/20 05:54 Home Meds: Home Meds ALPRAZolam [Xanax] 2 mg PO ASDIRECTED PRN 09/05/20 [History] amLODIPine [Norvasc] 5 mg PO DAILY 07/30/20 [History] amLODIPine [Norvasc] 10 mg PO DAILY 30 Days #60 tab 08/26/20 [Rx] Past Medical History - Past Health History Medical/Surgical History: Denies Medical/Surgical History HEENT History: Reports: None Cardiovascular History: Reports: Hypertension Respiratory History: Reports: Other (See Below) Other Respiratory History: smoker Gastrointestinal History: Reports: None Genitourinary History: Reports: None Musculoskeletal History: Reports: None Neurological History: Reports: None Psychiatric History: Reports: None Endocrine/Metabolic History: Reports: None Hematologic History: Reports: None Dermatologic History: Reports: None - Infectious Disease History Infectious Disease History: Reports: Chicken Pox - Past Surgical History Musculoskeletal Surgical History: Reports: Other (See Below) Other Musculoskeletal Surgeries/Procedures:: tib fib fx in 2011 Social & Family History - Family History Family Medical History: Noncontributory - Tobacco Use Smoking Status *Q: Former Smoker Used Tobacco, but Quit: Yes Month/Year Tobacco Last Used: 02/2020 - Caffeine Use Caffeine Use: Reports: None - Recreational Drug Use Recreational Drug Use: No ED ROS GENERAL - Review of Systems Review Of Systems: See Below ED EXAM, GENERAL - Physical Exam Exam: See Below Course - Vital Signs Last Recorded V/S: Last Vital Signs Temp 37.2 C 08/26/20 05:55 Pulse 99 08/26/20 05:55 Resp 18 08/26/20 05:55 BP 177/128 H 08/26/20 06:12 Pulse Ox 98 08/26/20 05:55 - Orders/Labs/Meds Meds: Medications Discontinued Medications Generic Name Dose Route Start Last Admin Trade Name Trevq PRN Reason Stop Dose Admin Amlodipine Besylate 5 mg 08/26/20 06:02 08/26/20 06:12 Norvasc PO 08/26/20 06:03 5 mg ONETIME ONE Administration Departure - Departure Time of Disposition: 06:05 Disposition: Home, Self-Care 01 Condition: Good Clinical Impression: Hypertension Qualifiers: Hypertension type: essential hypertension Qualified Code(s): I10 - Essential (primary) hypertension Prescriptions: amLODIPine [Norvasc] 10 mg PO DAILY 30 Days #60 tab Instructions: Hypertension, Adult, [id number], Hypertension, Adult Referrals: PCP,None [Primary Care Provider] - Forms: ED Department Discharge Additional Instructions: The patient is informed of any results of their evaluation and diagnostic workup and all questions are answered. They are given discharge instructions and return precautions. The patient is stable for discharge. The patient states they understand and agree with the plan and that they will return if their symptoms get worse or if they have any new concerns. The following information is given to patients seen in the emergency department who are being discharged to home. This information is to outline your options for follow-up care. We provide all patients seen in our emergency department with a follow-up referral. The need for follow-up, as well as the timing and circumstances, are variable depending upon the specifics of your emergency department visit. If you don't have a primary care physician on staff, we will provide you with a referral. We always advise you to contact your personal physician following an emergency department visit to inform them of the circumstance of the visit and for follow-up with them and/or the need for any referrals to a consulting specialist. The emergency department will also refer you to a specialist when appropriate. This referral assures that you have the opportunity for follow-up care with a specialist. All of these measure are taken in an effort to provide you with optimal care, which includes your follow-up. Under all circumstances we always encourage you to contact your private physician who remains a resource for coordinating your care. When calling for follow-up care, please make the office aware that this follow-up is from your recent emergency room visit. If for any reason you are refused follow-up, please contact the [facility] Emergency Department at and asked to speak to the emergency department charge nurse. PLEASE CONTINUE WITH AMLODIPINE DAILY. NEW DOSE IS NOW 10mg DAILY. FOLLOW UP WITH PRIMARY DOCTOR FOR CONTINUED MANAGEMENT [facility] - Primary Care [address] [place] [id number] [facility] [address] [place] [id number] Sepsis Event Note (ED) - Evaluation Sepsis Screening Result: No Definite Risk - Focused Exam Vital Signs: Vital Signs Temp Pulse Resp BP BP Pulse Ox 08/26/20 06:12 177/128 H 08/26/20 05:55 37.2 C 99 18 177/128 H 98
== END 2020-08-26 06:31 | disposition home or self-care (01) ==
LOC: MW.ED 05:41
DX: I10 Essential (primary) hypertension (principal); Z87.891 Personal history of nicotine dependence; Z79.899 Other long term (current) drug therapy
CPT/HCPCS: 99283; A9270

== ENCOUNTER 2021-03-25 12:55 | Emergency (ER) | payer MEDICAID ==
[2021-03-25] MEDS ORDERED: Sodium Chloride 0.9% 2.5 ML Syringe FLUSH PRN (13:25)
[2021-03-25] MEDS ORDERED: Sodium Chloride 0.9% 10 ML Syringe FLUSH PRN (13:25)
--- NOTE | 2021-03-25 13:28 | EDM.PDOC ---
ED HPI GENERAL MEDICAL PROBLEM - General Chief Complaint: Lower Extremity Injury/Pain Stated Complaint: SWOLLEN LEGS Time Seen by Provider: 03/25/21 13:15 - History of Present Illness INITIAL COMMENTS - FREE TEXT/NARRATIVE: 40-year-old male with a history of hypertension, anxiety, alcohol abuse is presenting with lower extremity edema. Patient was brought in by his mother. They report 3 to 4 weeks of gradually worsening bilateral lower extremity edema. He denies shortness of breath he denies chest pain he denies abdominal pain or swelling. He does note some nausea and diarrhea that started last night after eating barbecue but this is largely resolved and prior to that he was having no GI symptoms. He denies fevers or chills or cough. He reports compliance with his medications. Pt states that he drink [employer]'s "17/06." bilateral legs Pain Score (Numeric/FACES): 6 - Related Data Allergies Allergy/AdvReac Type Severity Reaction Status Date / Time No Known Allergies Allergy Verified 03/25/21 13:22 Home Meds: Home Meds ALPRAZolam [Xanax] 2 mg PO ASDIRECTED PRN 07/30/20 [History] amLODIPine [Norvasc] 5 mg PO DAILY 07/30/20 [History] amLODIPine [Norvasc] 10 mg PO DAILY 30 Days #60 tab 08/26/20 [Rx] Past Medical History - Past Health History Medical/Surgical History: Denies Medical/Surgical History HEENT History: Reports: None Cardiovascular History: Reports: Hypertension Respiratory History: Reports: Other (See Below) Other Respiratory History: smoker Gastrointestinal History: Reports: None Genitourinary History: Reports: None Musculoskeletal History: Reports: None Neurological History: Reports: None Psychiatric History: Reports: None Endocrine/Metabolic History: Reports: None Hematologic History: Reports: None Dermatologic History: Reports: None - Infectious Disease History Infectious Disease History: Reports: Chicken Pox - Past Surgical History Musculoskeletal Surgical History: Reports: Other (See Below) Other Musculoskeletal Surgeries/Procedures:: tib fib fx in 2011 Social & Family History - Family History Family Medical History: No Pertinent Family History - Caffeine Use Caffeine Use: Reports: None Review of Systems - Review of Systems Review Of Systems: Comprehensive ROS is negative, except as noted in HPI. ED EXAM, GENERAL - Physical Exam Exam: See Below Free Text/Narrative:: General Appearance: No acute distress, appears comfortable Skin: No rash HEENT: Normocephalic/atraumatic, sclera anicteric, mucous membranes moist Neck: Normal range of motion Chest and Lungs: Bilateral breath sounds, clear to auscultation Cardiovascular: Regular rate and rhythm, intact distal perfusion, 2+ pitting edema to the proximal tibia bilaterally edema symmetric Abdomen: Soft, non-tender Back: Normal Musculoskeletal: No focal tenderness Neurologic: Awake, alert, no obvious deficits, moving all extremities Psychiatric: Appropriate, cooperative #1 Interpretation EKG Date: 03/25/21 Time: 13:40 EKG Interpretation Comments: Sinus rhythm with a rate of 80 unremarkable axis and intervals QTC 428 no acute ischemia Course - Vital Signs Last Recorded V/S: Last Vital Signs Temp 98.3 F 03/25/21 13:17 Pulse 86 03/25/21 13:17 Resp 19 03/25/21 13:17 BP 127/86 03/25/21 13:17 Pulse Ox 96 03/25/21 13:17 - Orders/Labs/Meds Orders: Active Orders 24 hr Category Date Time Status EKG Documentation Completion [RC] AM Care 03/25/21 13:25 Active Sodium Chloride 0.9% [Saline Flush] Med 03/25/21 13:25 Active 10 ml FLUSH ASDIRECTED PRN Sodium Chloride 0.9% [Saline Flush] Med 03/25/21 13:25 Active 2.5 ml FLUSH ASDIRECTED PRN Saline Lock Insert [OM.PC] Stat Oth 03/25/21 13:25 Ordered Medication Orders Sodium Chloride (Sodium Chloride 0.9% 10 Ml Syringe) 10 ml FLUSH ASDIRECTED PRN PRN Reason: Keep Vein Open Last Admin: 03/25/21 13:38 Dose: 10 ml Documented by: JESUS Sodium Chloride (Sodium Chloride 0.9% 2.5 Ml Syringe) 2.5 ml FLUSH ASDIRECTED PRN PRN Reason: Keep Vein Open Last Admin: 03/25/21 13:38 Dose: 2.5 ml Documented by: JESUS Labs: Laboratory Tests 03/25/21 03/25/21 03/25/21 Range/Units 13:35 13:35 13:35 WBC 6.88 (4.0-11.0) K/uL RBC 4.57 (4.50-5.90) M/uL Hgb 13.9 (13.0-17.0) g/dL Hct 38.7 (38.0-50.0) % MCV 84.7 (80.0-98.0) fL MCH 30.4 (27.0-32.0) pg MCHC 35.9 (31.0-37.0) g/dL RDW Std Deviation 42.5 (28.0-62.0) fl RDW Coeff of Liliana 14 (11.0-15.0) % Plt Count 245 (150-400) K/uL MPV 10.10 (7.40-12.00) fL Neut % (Auto) 54.7 (48.0-80.0) % Lymph % (Auto) 34.4 (16.0-40.0) % [place] % (Auto) 6.3 (0.0-15.0) % Eos % (Auto) 4.2 (0.0-7.0) % Baso % (Auto) 0.4 (0.0-1.5) % Neut # (Auto) 3.8 (1.4-5.7) K/uL Lymph # (Auto) 2.4 (0.6-2.4) K/uL [place] # (Auto) 0.4 (0.0-0.8) K/uL Eos # (Auto) 0.3 (0.0-0.7) K/uL Baso # (Auto) 0.0 (0.0-0.1) K/uL Nucleated RBC % 0.0 /100WBC Nucleated RBCs # 0 K/uL Sodium 139 (136-148) mmol/L Potassium 3.7 (3.5-5.1) mmol/L Chloride 104 (98-107) mmol/L Carbon Dioxide 25.2 (21.0-32.0) mmol/L BUN 16 (7.0-18.0) mg/dL Creatinine 1.3 (0.8-1.3) mg/dL Est Cr Clr Drug Dosing 90.88 mL/min Estimated GFR (MDRD) > 60.0 ml/min Glucose 103 (74-106) mg/dL Calcium 8.4 L (8.5-10.1) mg/dL Magnesium 2.0 (1.8-2.4) mg/dL Total Bilirubin 0.5 (0.2-1.0) mg/dL AST 26 (15-37) IU/L ALT 28 (14-63) IU/L Alkaline Phosphatase 110 (46-116) U/L Troponin I < 0.050 (0.000-0.056) ng/mL B-Natriuretic Peptide < 2 (<100) PG/ML Total Protein 7.6 (6.4-8.2) g/dL Albumin 3.6 (3.4-5.0) g/dL Globulin 4.0 (2.6-4.0) g/dL Albumin/Globulin Ratio 0.9 (0.9-1.6) Urine Color Urine Appearance Urine pH (5.0-8.0) Ur Specific [place] (1.001-1.035) Urine Protein (NEGATIVE) mg/dL Urine Glucose (UA) (NEGATIVE) mg/dL Urine Ketones (NEGATIVE) mg/dL Urine Occult Blood (NEGATIVE) Urine Nitrite (NEGATIVE) Urine Bilirubin (NEGATIVE) Urine Urobilinogen (<2.0) EU/dL Ur Leukocyte Esterase (NEGATIVE) Urine RBC (0-2/HPF) Urine WBC (0-5/HPF) Ur Epithelial Cells (NONE-FEW) Urine Bacteria (NEGATIVE) Ethyl Alcohol 82 mg/dL 03/25/21 Range/Units 14:20 WBC (4.0-11.0) K/uL RBC (4.50-5.90) M/uL Hgb (13.0-17.0) g/dL Hct (38.0-50.0) % MCV (80.0-98.0) fL MCH (27.0-32.0) pg MCHC (31.0-37.0) g/dL RDW Std Deviation (28.0-62.0) fl RDW Coeff of Liliana (11.0-15.0) % Plt Count (150-400) K/uL MPV (7.40-12.00) fL Neut % (Auto) (48.0-80.0) % Lymph % (Auto) (16.0-40.0) % [place] % (Auto) (0.0-15.0) % Eos % (Auto) (0.0-7.0) % Baso % (Auto) (0.0-1.5) % Neut # (Auto) (1.4-5.7) K/uL Lymph # (Auto) (0.6-2.4) K/uL [place] # (Auto) (0.0-0.8) K/uL Eos # (Auto) (0.0-0.7) K/uL Baso # (Auto) (0.0-0.1) K/uL Nucleated RBC % /100WBC Nucleated RBCs # K/uL Sodium (136-148) mmol/L Potassium (3.5-5.1) mmol/L Chloride (98-107) mmol/L Carbon Dioxide (21.0-32.0) mmol/L BUN (7.0-18.0) mg/dL Creatinine (0.8-1.3) mg/dL Est Cr Clr Drug Dosing mL/min Estimated GFR (MDRD) ml/min Glucose (74-106) mg/dL Calcium (8.5-10.1) mg/dL Magnesium (1.8-2.4) mg/dL Total Bilirubin (0.2-1.0) mg/dL AST (15-37) IU/L ALT (14-63) IU/L Alkaline Phosphatase (46-116) U/L Troponin I (0.000-0.056) ng/mL B-Natriuretic Peptide (<100) PG/ML Total Protein (6.4-8.2) g/dL Albumin (3.4-5.0) g/dL Globulin (2.6-4.0) g/dL Albumin/Globulin Ratio (0.9-1.6) Urine Color YELLOW Urine Appearance CLEAR Urine pH 5.5 (5.0-8.0) Ur Specific [place] 1.010 (1.001-1.035) Urine Protein NEGATIVE (NEGATIVE) mg/dL Urine Glucose (UA) NEGATIVE (NEGATIVE) mg/dL Urine Ketones NEGATIVE (NEGATIVE) mg/dL Urine Occult Blood NEGATIVE (NEGATIVE) Urine Nitrite NEGATIVE (NEGATIVE) Urine Bilirubin NEGATIVE (NEGATIVE) Urine Urobilinogen 0.2 (<2.0) EU/dL Ur Leukocyte Esterase NEGATIVE (NEGATIVE) Urine RBC 0-1 (0-2/HPF) Urine WBC 0-1 (0-5/HPF) Ur Epithelial Cells RARE (NONE-FEW) Urine Bacteria RARE (NEGATIVE) Ethyl Alcohol mg/dL Meds: Medications Generic Name Dose Route Start Last Admin Trade Name Freq PRN Reason Stop Dose Admin Sodium Chloride 10 ml 03/25/21 13:25 03/25/21 13:38 Sodium Chloride 0.9% 10 Ml Syringe FLUSH 10 ml ASDIRECTED PRN Administration Keep Vein Open Sodium Chloride 2.5 ml 03/25/21 13:25 03/25/21 13:38 Sodium Chloride 0.9% 2.5 Ml Syringe FLUSH 2.5 ml ASDIRECTED PRN Administration Keep Vein Open Departure - Departure Time of Disposition: 15:00 Disposition: Admitted As Inpatient 64 Condition: Good Clinical Impression: Lower extremity edema - Discharge Information *PRESCRIPTION DRUG MONITORING PROGRAM REVIEWED*: Not Applicable *COPY OF PRESCRIPTION DRUG MONITORING REPORT IN PATIENT PAZ: Not Applicable Instructions: Peripheral Edema Referrals: Flora Steiner NP [Primary Care Provider] - Forms: ED Department Discharge Additional Instructions: Your labs today show normal kidney function. I encourage you to follow-up with your primary care doctor or one of the primary care clinics listed below. You may benefit from being started on a diuretic to help decrease your swelling that this should be done for chronic office. [facility] - Primary [facility] [address] [place] [address] [place] [address] The following information is given to patients seen in the emergency department who are being discharged to home. This information is to outline your options for follow-up care. We provide all patients seen in our emergency department with a follow-up referral. The need for follow-up, as well as the timing and circumstances, are variable depending upon the specifics of your emergency department visit. If you don't have a primary care physician on staff, we will provide you with a referral. We always advise you to contact your personal physician following an emergency department visit to inform them of the circumstance of the visit and for follow-up with them and/or the need for any referrals to a consulting specialist. The emergency department will also refer you to a specialist when appropriate. This referral assures that you have the opportunity for follow-up care with a specialist. All of these measure are taken in an effort to provide you with optimal care, which includes your follow-up. Under all circumstances we always encourage you to contact your private physician who remains a resource for coordinating your care. When calling for follow-up care, please make the office aware that this follow-up is from your recent emergency room visit. If for any reason you are refused follow-up, please contact the Emergency Department at and asked to speak to the emergency department charge nurse. Sepsis Event Note (ED) - Evaluation Sepsis Screening Result: No Definite Risk - Focused Exam Vital Signs: Vital Signs Temp Pulse Resp BP Pulse Ox 03/25/21 13:17 98.3 F 86 19 127/86 96 - My Orders Last 24 Hours: My Active Orders 03/25/21 13:25 EKG Documentation Completion [RC] AM Sodium Chloride 0.9% [Saline Flush] 10 ml FLUSH ASDIRECTED PRN Sodium Chloride 0.9% [Saline Flush] 2.5 ml FLUSH ASDIRECTED PRN Saline Lock Insert [OM.PC] Stat - Assessment/Plan Last 24 Hours: My Active Orders 03/25/21 13:25 EKG Documentation Completion [RC] AM Sodium Chloride 0.9% [Saline Flush] 10 ml FLUSH ASDIRECTED PRN Sodium Chloride 0.9% [Saline Flush] 2.5 ml FLUSH ASDIRECTED PRN Saline Lock Insert [OM.PC] Stat Assessment:: 40-year-old male presented with signs and symptoms most concerning with volume overload. Could be related to liver dysfunction renal dysfunction CHF felt less likely patient denies orthopnea or PND. EKG CBC CMP magnesium chest x-ray urinalysis to evaluate for nephrotic syndrome all of these are pending at this time. 1415: CXR with borderline vascular congestion but no abhihsek edema or effusions. Labs thus far are normal, trop is good, electrolytes are normal, protein normal, etOH minimally up at 80. BNP and UA remain pending. 1500: Patient's labs are all normal. Good kidney function and liver function normal protein no signs of nephrotic syndrome no signs of CHF blood work. Patient has no respiratory symptoms no PND no orthopnea. Discussed the importance of trying to gradually cut down his alcohol use we discussed importance of following up with his primary care doctor for consideration for standing diuretic therapy given the lab work you I would not start that at this time.
--- NOTE | 2021-03-25 14:01 | CR ---
INDICATION: Evaluate for signs of fluid overload. Patient with 3-4 weeks of gradually worsening lower extremity edema. History of alcohol abuse and hypertension. TECHNIQUE: PA and lateral chest x-ray. COMPARISON: Chest x-ray 11/09/2019. FINDINGS: Mild increased central and upper lung vascularity suggesting borderline pulmonary venous congestion. No pleural effusions to suggest CHF or pulmonary edema. Heart size normal. Focal opacity along left lateral heart border is new and could be a cardiac fat pad since it is fairly lucent. Platelike atelectasis or scarring in the left lower lung along the posterior heart border is new. Lungs otherwise clear without infiltrate or consolidation. Increasing pleural thickening in the lung apices. Chest otherwise negative without acute disease. Dictated by Pa Huizar MD @ 03/25/2021 2:00:[address] Pa Huizar @ Mar 25 2021 2:00PM
[2021-03-25 14:06] LABS: BLOOD UREA NITROGEN,BUN 16 mg/dL (7.0-18.0); CARBON DIOXIDE,CO2 25.2 mmol/L (21.0-32.0); CHLORIDE,CL 104 mmol/L (98-107); GLUCOSE RANDOM 103 mg/dL (74-106); POTASSIUM,K 3.7 mmol/L (3.5-5.1); SODIUM,NA 139 mmol/L (136-148)
== END 2021-03-25 15:15 | disposition home or self-care (01) ==
LOC: MW.ED 12:55
DX: R60.0 Localized edema (principal); I10 Essential (primary) hypertension; Z79.899 Other long term (current) drug therapy
CPT/HCPCS: 36415; 71046; 71046-26; 80053; 80307; 81001; 83735; 83880; 84484; 85025; 93005; 93010; 99284; 99284-25

== ENCOUNTER 2021-04-11 23:31 | Emergency (ER) | payer MEDICAID ==
[2021-04-12] MEDS ORDERED: Sodium Chloride 0.9% 2.5 ML Syringe FLUSH PRN (00:08)
[2021-04-12] MEDS ORDERED: Sodium Chloride 0.9% 10 ML Syringe FLUSH PRN (00:08)
[2021-04-12 01:08] LABS: BLOOD UREA NITROGEN,BUN 26 mg/dL (7.0-18.0); CARBON DIOXIDE,CO2 24.4 mmol/L (21.0-32.0); CHLORIDE,CL 100 mmol/L (98-107); GLUCOSE RANDOM 87 mg/dL (74-106); LIPASE 112 U/L (73-393); POTASSIUM,K 4.3 mmol/L (3.5-5.1); SODIUM,NA 136 mmol/L (136-148)
--- NOTE | 2021-04-12 01:27 | CR ---
HISTORY: Lower extremity swelling. COMPARISON: 03/25/2021 FINDINGS: A portable erect AP view of the chest was obtained at 0039 hours. The lungs remain clear. No focal or diffuse infiltrates are present. The heart has slightly increased in size and is now top normal in size. The mediastinum is normal in appearance. The osseous structures are normal in appearance for the patient`s age. IMPRESSION: Slight increase in heart size, not top-normal. Otherwise no active disease seen in the chest. Dictated by Alex Norman MD @ 04/12/2021 1:26:[address] Alex Norman @ Apr 12 2021 1:26AM
[2021-04-12] MEDS ORDERED: Hydrochlorothiazide 25 MG Tab PO ONE (01:32)
--- NOTE | 2021-04-12 01:37 | EDM.PDOC ---
ED HPI GENERAL MEDICAL PROBLEM - General Chief Complaint: Lower Extremity Injury/Pain Stated Complaint: SWOLLEN LEGS AND FEET Time Seen by Provider: 04/11/21 23:55 - History of Present Illness INITIAL COMMENTS - FREE TEXT/NARRATIVE: HISTORY AND PHYSICAL: History of present illness: This is a 40-year-old gentleman with a history significant for hypertension as well as alcohol use disorder who presents ER today with [employer] secondary to need for medical clearance for incarceration. Patient is in the [facility] program and asked to have daily alcohol breathalyzer tests. Patient reports that he has been alcohol free for approximately 30 days. Patient reports that this evening he was making dinner in the [employer] and had some beer. When he went in to have his breathalyzer checked he had a ALK level of 0.1. Secondary to the positive alcohol level the patient will need to be reincarcerated until he is seen in front of the election judge. Patient presents to the ER today by law enforcement for medical clearance secondary to his history of hypertension and peripheral edema. Patient denies any fevers, shakes, chills, nausea, vomiting, diarrhea, dysuria, frequency, urgency, chest pain, shortness of breath. Patient has any dyspnea on exertion, orthopnea, PND. Patient reports that he ran out of his diuretic approximately 2 weeks ago and has not been taking it. Patient reports he also ran out of his antihypertensive medications and has not been taking that as well to. Review of systems: As per history of present illness and below otherwise all systems reviewed and negative. Past medical history: As per history of present illness and as reviewed below otherwise noncontributory. Surgical history: As per history of present illness and as reviewed below otherwise noncontributory. Social history: No reported history of drug abuse. Family history: As per history of present illness and as reviewed below otherwise noncontributory. Physical exam: This patient was seen and evaluated during the 2019 SARS-CoV-2 novel coronavirus pandemic period. Community viral transmission is ongoing at time of this encounter and the emergency department is operating under pandemic response procedures. Constitutional: Patient is oriented to person, place, and time. Appears well- developed and well-nourished. No distress. HEENT: Moist mucous membranes Head: Normocephalic and atraumatic Eyes: Right eye exhibits no discharge. Left eye exhibits no discharge. No scleral icterus Neck: Normal range of motion. No tracheal deviation present. Cardiovascular: Normal rate and regular rhythm. Pulmonary: Effort normal, no respiratory distress. Abdominal: No distention Musculoskeletal: Normal range of motion Neurologic: Alert and oriented to person, place and time. Skin: [place], warm and dry. Psychiatric: Normal mood and affect. Behavior is normal. Judgment and thought content normal. Nursing note and vital signs have been reviewed Patient with 2+ bipedal edema. No calf tenderness. Leg swollen equally bilateral. Diagnostics: Chest Xray: Normal cardiac silhouette No infiltrates or effusions identified. No PTX No evidence of acute bony fracture. As interpreted by ER MD: Timothy EKG: As interpreted by ER physician: Timothy: Nonspecific ST-T wave abnormalities Normal axis No evidence of ST elevation RI Normal sinus rhythm heart rate of 70 CBC, CMP within normal limits. Patient has normal renal function with any significant changes from his prior. Therapeutics: Hydrochlorothiazide 25 mg p.o. Assessment and plan: This is a 40-year-old gentleman who presents ER today for medical clearance for incarceration. Patient does have a history significant for hypertension and peripheral edema. Patient has run out of his medications approximately 2 weeks ago. It appears that the patient is on Norvasc and a diuretic of unknown name and dose. At this time, the patient's blood pressure is stable without his need for antihypertensive medications. I will initiate hydrochlorothiazide 25 mg p.o. daily until he is able to be reevaluated by his primary care physician to determine any change in medication or doses. Patient will be released to [facility] officer for incarceration with strict instruc tions to return to the ED if he has any new or concerning symptoms. Reassessment at the time of disposition demonstrates that the patient is in no acute distress. The patient has remained stable throughout the entire ED visit and is without objective evidence for acute process requiring urgent intervention or hospitalization. The patient is stable for discharge, counseling is provided as documented above, discussed symptomatic treatment and specific conditions for return. I have spoken with the patient/caregiver and discussed todays findings, in addition to providing specific details for the plan of care. Questions are answered and there is agreement with the plan. Definitive disposition and diagnosis as appropriate pending reevaluation and review of above. - Related Data Allergies Allergy/AdvReac Type Severity Reaction Status Date / Time No Known Allergies Allergy Verified 04/11/21 23:53 Home Meds: Home Meds ALPRAZolam [Xanax] 2 mg PO ASDIRECTED PRN 07/30/20 [History] amLODIPine [Norvasc] 5 mg PO DAILY 07/30/20 [History] amLODIPine [Norvasc] 10 mg PO DAILY 30 Days #60 tab 08/26/20 [Rx] ALPRAZolam [Xanax] 2 mg PO TID PRN #12 tablet 03/25/21 [Rx] busPIRone [Buspar] mg PO DAILY 04/11/21 [History] busPIRone [Buspar] 20 mg PO TID #30 tablet 04/12/21 [Rx] hydroCHLOROthiazide [Hydrochlorothiazide] 25 mg PO DAILY #30 tablet 04/12/21 [Rx] Past Medical History - Past Health History Medical/Surgical History: Denies Medical/Surgical History HEENT History: Reports: None Cardiovascular History: Reports: Hypertension Respiratory History: Reports: Other (See Below) Other Respiratory History: smoker Gastrointestinal History: Reports: None Genitourinary History: Reports: None Musculoskeletal History: Reports: None Neurological History: Reports: None Psychiatric History: Reports: Anxiety Endocrine/Metabolic History: Reports: None Hematologic History: Reports: None Dermatologic History: Reports: None - Infectious Disease History Infectious Disease History: Reports: Chicken Pox - Past Surgical History Musculoskeletal Surgical History: Reports: Other (See Below) Other Musculoskeletal Surgeries/Procedures:: tib fib fx in 2011 Social & Family History - Family History Family Medical History: No Pertinent Family History - Tobacco Use Tobacco Use Status *Q: Former Tobacco User Used Tobacco, but Quit: Yes Month/Year Tobacco Last Used: 2019 - Caffeine Use Caffeine Use: Reports: Coffee - Recreational Drug Use Recreational Drug Use: No Review of Systems - Review of Systems Review Of Systems: See Below ED EXAM, GENERAL - Physical Exam Exam: See Below #1 Interpretation EKG Interpretation Comments: EKG: As interpreted by ER physician: Timothy: Nonspecific ST-T wave abnormalities Normal axis No evidence of ST elevation RI Normal sinus rhythm heart rate of 70 Course - Vital Signs Last Recorded V/S: Last Vital Signs Temp 97.1 F 04/11/21 23:55 Pulse 74 04/12/21 01:39 Resp 18 04/12/21 01:39 BP 111/71 04/12/21 01:39 Pulse Ox 97 04/12/21 01:39 - Orders/Labs/Meds Orders: Active Orders 24 hr Category Date Time Status Saline Lock Insert [OM.PC] Stat Oth 04/12/21 00:08 Ordered Labs: Laboratory Tests 04/12/21 04/12/21 04/12/21 Range/Units 00:29 00:29 00:29 WBC 6.86 (4.0-11.0) K/uL RBC 4.46 L (4.50-5.90) M/uL Hgb 13.6 (13.0-17.0) g/dL Hct 37.1 L (38.0-50.0) % MCV 83.2 (80.0-98.0) fL MCH 30.5 (27.0-32.0) pg MCHC 36.7 (31.0-37.0) g/dL RDW Std Deviation 41.2 (28.0-62.0) fl RDW Coeff of Liliana 14 (11.0-15.0) % Plt Count 253 (150-400) K/uL MPV 10.50 (7.40-12.00) fL Neut % (Auto) 49.0 (48.0-80.0) % Lymph % (Auto) 37.6 (16.0-40.0) % Dare % (Auto) 10.2 (0.0-15.0) % Eos % (Auto) 2.5 (0.0-7.0) % Baso % (Auto) 0.7 (0.0-1.5) % Neut # (Auto) 3.4 (1.4-5.7) K/uL Lymph # (Auto) 2.6 H (0.6-2.4) K/uL Dare # (Auto) 0.7 (0.0-0.8) K/uL Eos # (Auto) 0.2 (0.0-0.7) K/uL Baso # (Auto) 0.1 (0.0-0.1) K/uL Sodium 136 (136-148) mmol/L Potassium 4.3 (3.5-5.1) mmol/L Chloride 100 (98-107) mmol/L Carbon Dioxide 24.4 (21.0-32.0) mmol/L BUN 26 H (7.0-18.0) mg/dL Creatinine 1.5 H (0.8-1.3) mg/dL Est Cr Clr Drug Dosing 74.59 mL/min Estimated GFR (MDRD) 51.3 ml/min Glucose 87 (74-106) mg/dL Calcium 8.0 L (8.5-10.1) mg/dL Total Bilirubin 1.1 H (0.2-1.0) mg/dL AST 21 (15-37) IU/L ALT 25 (14-63) IU/L Alkaline Phosphatase 84 (46-116) U/L Troponin I < 0.050 (0.000-0.056) ng/mL B-Natriuretic Peptide 6 (<100) PG/ML Total Protein 7.4 (6.4-8.2) g/dL Albumin 3.6 (3.4-5.0) g/dL Globulin 3.8 (2.6-4.0) g/dL Albumin/Globulin Ratio 0.9 (0.9-1.6) Lipase 112 (73-393) U/L Ethyl Alcohol < 3.0 mg/dL Meds: Medications Discontinued Medications Generic Name Dose Route Start Last Admin Trade Name Freq PRN Reason Stop Dose Admin Buspirone HCl 20 mg 04/12/21 01:42 04/12/21 01:54 Buspirone 5 Mg Tab PO 04/12/21 01:43 20 mg ONETIME ONE Administration Hydrochlorothiazide 25 mg 04/12/21 01:32 04/12/21 01:40 Hydrochlorothiazide 25 Mg Tab PO 04/12/21 01:33 25 mg ONETIME ONE Administration Sodium Chloride 10 ml 04/12/21 00:08 04/12/21 00:31 Sodium Chloride 0.9% 10 Ml Syringe FLUSH 10 ml ASDIRECTED PRN Administration Keep Vein Open Sodium Chloride 2.5 ml 04/12/21 00:08 04/12/21 00:31 Sodium Chloride 0.9% 2.5 Ml Syringe FLUSH 2.5 ml ASDIRECTED PRN Administration Keep Vein Open Departure - Departure Time of Disposition: 01:37 Disposition: Home, Self-Care 01 Condition: Good Clinical Impression: Peripheral edema, Alcohol use Hypertension Qualifiers: Hypertension type: essential hypertension Qualified Code(s): I10 - Essential (primary) hypertension - Discharge Information Prescriptions: busPIRone [Buspar] 20 mg PO TID #30 tablet hydroCHLOROthiazide [Hydrochlorothiazide] 25 mg PO DAILY #30 tablet Instructions: Peripheral Edema, Hypertension, Adult Referrals: PCP,None [Primary Care Provider] - Forms: ED Department Discharge Additional Instructions: Your seen and evaluated in the ER today secondary to your lower extremity swelling and your history of hypertension. Your blood pressure in the ED here was within the acceptable range. You do have a significant amount of swelling to both legs. We will start you on hydrochlorothiazide 25 mg to take daily to help with the swelling in your legs as well as your blood pressure. Please make an appointment to see your family doctor as soon as you are able to so they can readjust your medications as needed. Please inform the [facility] staff of any new or concerning symptoms that may require return to the ED for further evaluation. The following information is given to patients seen in the emergency department who are being discharged to home. This information is to outline your options for follow-up care. We provide all patients seen in our emergency department with a follow-up referral. The need for follow-up, as well as the timing and circumstances, are variable depending upon the specifics of your emergency department visit. If you don't have a primary care physician on staff, we will provide you with a referral. We always advise you to contact your personal physician following an emergency department visit to inform them of the circumstance of the visit and for follow-up with them and/or the need for any referrals to a consulting specialist. The emergency department will also refer you to a specialist when appropriate. This referral assures that you have the opportunity for follow-up care with a specialist. All of these measure are taken in an effort to provide you with optimal care, which includes your follow-up. Under all circumstances we always encourage you to contact your private physician who remains a resource for coordinating your care. When calling for follow-up care, please make the office aware that this follow-up is from your recent emergency room visit. If for any reason you are refused follow-up, please contact the [facility] Emergency Department at and asked to speak to the emergency department charge nurse. [facility] - Primary Care [address] [place] [id number] [facility] [address] [place] [address] Sepsis Event Note (ED) - Evaluation Sepsis Screening Result: No Definite Risk - Focused Exam Vital Signs: Vital Signs Temp Pulse Resp BP Pulse Ox 04/12/21 01:39 74 18 111/71 97 04/11/21 23:55 97.1 F 73 18 122/90 96 - My Orders Last 24 Hours: My Active Orders 04/12/21 00:08 Saline Lock Insert [OM.PC] Stat - Assessment/Plan Last 24 Hours: My Active Orders 04/12/21 00:08 Saline Lock Insert [OM.PC] Stat
[2021-04-12] MEDS ORDERED: busPIRone 5 MG Tab PO ONE (01:42)
== END 2021-04-12 01:59 | disposition home or self-care (01) ==
LOC: MW.ED 23:31
DX: R60.0 Localized edema (principal); I10 Essential (primary) hypertension; Z87.891 Personal history of nicotine dependence; Z72.89 Other problems related to lifestyle
CPT/HCPCS: 36415; 71045; 80053; 80307; 83690; 83880; 84484; 85025; 93005; 99284; A9270; 93010

== ENCOUNTER 2021-08-29 11:25 | Emergency (ER) | payer MEDICAID ==
--- NOTE | 2021-08-29 11:57 | EDM.PDOC ---
ED HPI GENERAL MEDICAL PROBLEM - General Chief Complaint: General Stated Complaint: ANXIETY Time Seen by Provider: 08/29/21 11:30 Source of Information: Reports: Patient History Limitations: Reports: No Limitations - History of Present Illness INITIAL COMMENTS - FREE TEXT/NARRATIVE: 41-year-old male past history anxiety presents requesting medication refill. Patient is out of his Xanax medication. He is struggling to find a new primary care physician. No other complaints. - Related Data Allergies Allergy/AdvReac Type Severity Reaction Status Date / Time No Known Allergies Allergy Verified 08/29/21 11:52 Home Meds: Home Meds ALPRAZolam [Xanax] 2 mg PO ASDIRECTED PRN 07/30/20 [History] amLODIPine [Norvasc] 5 mg PO DAILY 07/30/20 [History] amLODIPine [Norvasc] 10 mg PO DAILY 30 Days #60 tab 08/26/20 [Rx] ALPRAZolam [Xanax] 2 mg PO TID PRN #12 tablet 03/25/21 [Rx] busPIRone [Buspar] mg PO DAILY 04/11/21 [History] busPIRone [Buspar] 20 mg PO TID #30 tablet 04/12/21 [Rx] hydroCHLOROthiazide [Hydrochlorothiazide] 25 mg PO DAILY #30 tablet 04/12/21 [Rx] ALPRAZolam [Xanax] 1 mg PO TID #30 tablet 08/29/21 [Rx] Past Medical History - Past Health History Medical/Surgical History: Denies Medical/Surgical History HEENT History: Reports: None Cardiovascular History: Reports: Hypertension Respiratory History: Reports: Other (See Below) Other Respiratory History: smoker Gastrointestinal History: Reports: None Genitourinary History: Reports: None Musculoskeletal History: Reports: None Neurological History: Reports: None Psychiatric History: Reports: Anxiety Endocrine/Metabolic History: Reports: None Hematologic History: Reports: None Dermatologic History: Reports: None - Infectious Disease History Infectious Disease History: Reports: Chicken Pox - Past Surgical History Musculoskeletal Surgical History: Reports: Other (See Below) Other Musculoskeletal Surgeries/Procedures:: tib fib fx in 2011 Social & Family History - Family History Family Medical History: No Pertinent Family History - Caffeine Use Caffeine Use: Reports: Coffee ED ROS GENERAL - Review of Systems Review Of Systems: Comprehensive ROS is negative, except as noted in HPI. ED EXAM, GENERAL - Physical Exam Exam: See Below Exam Limited By: No Limitations General Appearance: Alert, WD/WN, No Apparent Distress Ears: Hearing Grossly Normal Throat/Mouth: Normal Voice, No Airway Compromise Head: Atraumatic, Normocephalic Neck: Normal Inspection Respiratory/Chest: No Respiratory Distress, Lungs Clear, Normal Breath Sounds, No Accessory Muscle Use Cardiovascular: Normal Peripheral Pulses, Regular Rate, Rhythm Extremities: Normal Inspection Neurological: Alert, Normal Cognition, Normal Gait Psychiatric: Normal Affect, Normal Mood Skin Exam: Warm, Dry, Intact, Normal Color Course - Vital Signs Last Recorded V/S: Last Vital Signs Temp 98.0 F 08/29/21 12:03 Pulse 64 08/29/21 12:03 Resp 16 08/29/21 12:03 BP 147/91 H 08/29/21 12:03 Pulse Ox 96 08/29/21 12:03 - Re-Assessments/Exams Free Text/Narrative Re-Assessment/Exam: 08/29/21 12:12 Will provide patient with a 1 month supply of his medications but told him that we do not typically do this from the emergency department and I recommend he find a new PCP. Patient understands. Departure - Departure Time of Disposition: 12:12 Disposition: Home, Self-Care 01 Condition: Good Clinical Impression: Anxiety - Discharge Information Prescriptions: ALPRAZolam [Xanax] 1 mg PO TID #30 tablet Instructions: Managing Anxiety, Adult Referrals: Vicki Gomez DO [Primary Care Provider] - Forms: ED Department Discharge Additional Instructions: I sent a prescription for your anxiety medication to [place] pharmacy which is located in [facility]. Information is provided below for primary care physicians as you need to establish care with somebody. We do not typically refill these types of medications from the emergency department although I wanted to help you out today. It is likely if you come back to the emergency department we will not refill this medication so is very important that you establish care with a new primary care physician. The following information is given to patients seen in the emergency department who are being discharged to home. This information is to outline your options for follow-up care. We provide all patients seen in our emergency department with a follow-up referral. The need for follow-up, as well as the timing and circumstances, are variable depending upon the specifics of your emergency department visit. If you don't have a primary care physician on staff, we will provide you with a referral. We always advise you to contact your personal physician following an emergency department visit to inform them of the circumstance of the visit and for follow-up with them and/or the need for any referrals to a consulting specialist. The emergency department will also refer you to a specialist when appropriate. This referral assures that you have the opportunity for follow-up care with a specialist. All of these measure are taken in an effort to provide you with optimal care, which includes your follow-up. Under all circumstances we always encourage you to contact your private physician who remains a resource for coordinating your care. When calling for follow-up care, please make the office aware that this follow-up is from your recent emergency room visit. If for any reason you are refused follow-up, please contact the [facility] Emergency Department at and asked to speak to the emergency department charge nurse. Please follow up with your primary care physician. If you do not have a primary care physician, see below: [facility] [address] [place] [id number] [facility] [address] [place] [id number] [facility] [address] [place] [id number] Sepsis Event Note (ED) - Focused Exam Vital Signs: Vital Signs Temp Pulse Resp BP Pulse Ox 08/29/21 12:03 98.0 F 64 16 147/91 H 96
== END 2021-08-29 12:23 | disposition home or self-care (01) ==
LOC: MW.ED 11:25
DX: F41.9 Anxiety disorder, unspecified (principal); Z76.0 Encounter for issue of repeat prescription; I10 Essential (primary) hypertension; Z79.899 Other long term (current) drug therapy
CPT/HCPCS: 99283

== ENCOUNTER 2021-09-07 20:30 | Emergency (ER) | payer MEDICAID ==
[2021-09-07] MEDS ORDERED: Sodium Chloride 0.9% 2.5 ML Syringe FLUSH PRN (20:41)
[2021-09-07] MEDS ORDERED: Sodium Chloride 0.9% 10 ML Syringe FLUSH PRN (20:41)
--- NOTE | 2021-09-07 21:12 | EDM.PDOC ---
ED HPI GENERAL MEDICAL PROBLEM - General Chief Complaint: General Stated Complaint: SOB Time Seen by Provider: 09/07/21 20:32 - History of Present Illness INITIAL COMMENTS - FREE TEXT/NARRATIVE: HISTORY AND PHYSICAL: History of present illness: This is a 41-year-old gentleman with a history significant for hypertension, methamphetamine use, alcohol use, who was brought to the ER today with EMS and police secondary to shortness of breath. Per [place] police, patient's mother notified EMS secondary to patient complaining of shortness of breath. Apparently patient had been snorting meth earlier today. Patient reports that he went to the gym to workout and started feeling extremely paranoid so he ran home in his work boots. He reports that he ran approximately 3 blocks and by time he got home he was extremely short of breath so his mother called ambulance for further evaluation. Patient reports that he currently is asymptomatic and has no shortness of breath. Patient denied having any chest pain, nausea, vomit ing, pain rating down his arms or back, abdominal pain, diarrhea, fevers, shakes, chills, recent URI symptoms, cough cold or congestion. Patient reports while sitting here and in route to the hospital his shortness of breath are completely resolved. Patient reports that after running 3 blocks he would expect to be short of breath as he feels that he is currently out of shape. Patient reports that he does have a history of hypertension and is compliant with his lisinopril and amlodipine. Patient denies any history of CAD, diabetes, liver, lung, kidney problems. Patient reports that he has abstained from tobacco, alcohol or drugs until approximately 3 days ago when he started drinking and then yesterday started using methamphetamines again for the first time in a while. Patient reports that he used methamphetamines earlier today as well. Patient reports that he is currently unemployed. Review of systems: As per history of present illness and below otherwise all systems reviewed and negative. Past medical history: As per history of present illness and as reviewed below otherwise noncontributory. Surgical history: As per history of present illness and as reviewed below otherwise noncontributory. Social history: No reported history of drug abuse. Family history: As per history of present illness and as reviewed below otherwise noncontributory. Physical exam: This patient was seen and evaluated during the 2019 SARS-CoV-2 novel coronavirus pandemic period. Community viral transmission is ongoing at time of this encounter and the emergency department is operating under pandemic response procedures. Constitutional: Patient is oriented to person, place, and time. Appears well- developed and well-nourished. No distress. HEENT: Moist mucous membranes Head: Normocephalic and atraumatic Eyes: Right eye exhibits no discharge. Left eye exhibits no discharge. No scleral icterus Neck: Normal range of motion. No tracheal deviation present. Cardiovascular: Normal rate and regular rhythm. Heart rate of 110 bpm. No murmurs gallops or rubs. Pulmonary: Effort normal, no respiratory distress. No wheezing rales or rhonchi Abdominal: No distention Musculoskeletal: Normal range of motion. No peripheral edema. Neurologic: Alert and oriented to person, place and time. Skin: [place], warm and dry. Psychiatric: Normal mood and affect. Behavior is normal. Judgment and thought content normal. Nursing note and vital signs have been reviewed Diagnostics: September 07, 2021 8:56 PM: EKG: As interpreted by ER physician: Timothy: Nonspecific ST-T wave abnormalities Normal axis No evidence of ST elevation IA Sinus tachycardia 120 bpm Therapeutics: Patient required treatment with intravenous normal saline solution secondary to clinical evidence of dehydration as manifested by history and physical examination. Assessment and plan: This is a 41-year-old gentleman who presents to the ER today secondary to shortness of breath that happened after running outdoors for 3 blocks. Patient reports that he was at the gym try to work out in the start feeling paranoid and so he left the gym. Patient presented to the ED today by EMS wearing his over alls and work boots. Patient is currently asymptomatic and has no symptoms of shortness of breath. Patient reports he never had any chest discomfort during this episode. Patient denies any other cardiac symptoms other than shortness of breath after running 3 blocks. Patient's EKG did not reveal any evidence of acute ischemia or old although it is tachycardic which is not unexpected given his recent methamphetamine use. Patient will have labs drawn including a troponin, CBC, CMP, chest x-ray and will be reevaluated once the results are back. 1:33 AM: Patient has been reevaluated multiple times during his ER visit. Patient remained stable. Patient's heart rate currently is 105 bpm. Patient is resting comfortably and feels well. Patient is requesting be discharged home to get some sleep. Patient reports he is not having any auditory visual hallucinations. Patient is not homicidal or suicidal ideations. Patient's mother is at his bedside and she feels comfortable taking him home at this time and will return to the ED if he develops any new or concerning symptoms. Patient is remained asymptomatic throughout his entire ER visit. Reassessment at the time of disposition demonstrates that the patient is in no acute distress. The patient has remained stable throughout the entire ED visit and is without objective evidence for acute process requiring urgent intervention or hospitalization. The patient is stable for discharge, counseling is provided as documented above, discussed symptomatic treatment and specific conditions for return. I have spoken with the patient/caregiver and discussed todays findings, in addition to providing specific details for the plan of care. Questions are answered and there is agreement with the plan. Definitive disposition and diagnosis as appropriate pending reevaluation and review of above. - Related Data Allergies Allergy/AdvReac Type Severity Reaction Status Date / Time No Known Allergies Allergy Verified 09/07/21 20:32 Home Meds: Home Meds ALPRAZolam [Xanax] 2 mg PO ASDIRECTED PRN 07/30/20 [History] amLODIPine [Norvasc] 5 mg PO DAILY 07/30/20 [History] amLODIPine [Norvasc] 10 mg PO DAILY 30 Days #60 tab 08/26/20 [Rx] ALPRAZolam [Xanax] 2 mg PO TID PRN #12 tablet 03/25/21 [Rx] busPIRone [Buspar] mg PO DAILY 04/11/21 [History] busPIRone [Buspar] 20 mg PO TID #30 tablet 04/12/21 [Rx] hydroCHLOROthiazide [Hydrochlorothiazide] 25 mg PO DAILY #30 tablet 04/12/21 [Rx] ALPRAZolam [Xanax] 1 mg PO TID #30 tablet 08/29/21 [Rx] Past Medical History - Past Health History Medical/Surgical History: Denies Medical/Surgical History HEENT History: Reports: None Cardiovascular History: Reports: Hypertension Respiratory History: Reports: Other (See Below) Other Respiratory History: smoker Gastrointestinal History: Reports: None Genitourinary History: Reports: None Musculoskeletal History: Reports: Fracture Neurological History: Reports: None Psychiatric History: Reports: Anxiety, Other (See Below) Other Psychiatric History: concentration issues Endocrine/Metabolic History: Reports: None Hematologic History: Reports: None Dermatologic History: Reports: None - Infectious Disease History Infectious Disease History: Reports: Chicken Pox - Past Surgical History Other HEENT Surgeries/Procedures: glasses Musculoskeletal Surgical History: Reports: Other (See Below) Other Musculoskeletal Surgeries/Procedures:: tib fib fx in 2011 Social & Family History - Family History Family Medical History: No Pertinent Family History - Caffeine Use Caffeine Use: Reports: None - Recreational Drug Use Recreational Drug Use: Yes ED ROS GENERAL - Review of Systems Review Of Systems: See Below ED EXAM, GENERAL - Physical Exam Exam: See Below Course - Vital Signs Last Recorded V/S: Last Vital Signs Temp 98.2 F 09/07/21 20:32 Pulse 107 H 09/08/21 00:44 Resp 18 09/08/21 00:44 BP 144/81 H 09/08/21 00:44 Pulse Ox 94 L 09/08/21 00:44 - Orders/Labs/Meds Orders: Active Orders 24 hr Category Date Time Status Sodium Chloride 0.9% [Saline Flush] Med 09/07/21 20:41 Active 10 ml FLUSH ASDIRECTED PRN Sodium Chloride 0.9% [Saline Flush] Med 09/07/21 20:41 Active 2.5 ml FLUSH ASDIRECTED PRN Saline Lock Insert [OM.PC] Stat Oth 09/07/21 20:41 Ordered Medication Orders Sodium Chloride (Sodium Chloride 0.9% 10 Ml Syringe) 10 ml FLUSH ASDIRECTED PRN PRN Reason: Keep Vein Open Last Admin: 09/07/21 22:21 Dose: 10 ml Documented by: ALANNA Sodium Chloride (Sodium Chloride 0.9% 2.5 Ml Syringe) 2.5 ml FLUSH ASDIRECTED PRN PRN Reason: Keep Vein Open Last Admin: 09/07/21 22:21 Dose: 2.5 ml Documented by: ALANNA Labs: Laboratory Tests 09/07/21 09/07/21 Range/Units 21:46 21:46 WBC 14.64 H (4.0-11.0) K/uL RBC 4.84 (4.50-5.90) M/uL Hgb 14.5 (13.0-17.0) g/dL Hct 39.7 (38.0-50.0) % MCV 82.0 (80.0-98.0) fL MCH 30.0 (27.0-32.0) pg MCHC 36.5 (31.0-37.0) g/dL RDW Std Deviation 40.5 (28.0-62.0) fl RDW Coeff of Liliana 14 (11.0-15.0) % Plt Count 336 (150-400) K/uL MPV 10.50 (7.40-12.00) fL Neut % (Auto) 87.1 H (48.0-80.0) % Lymph % (Auto) 6.0 L (16.0-40.0) % [place] % (Auto) 6.8 (0.0-15.0) % Eos % (Auto) 0.0 (0.0-7.0) % Baso % (Auto) 0.1 (0.0-1.5) % Neut # (Auto) 12.8 H (1.4-5.7) K/uL Lymph # (Auto) 0.9 (0.6-2.4) K/uL [place] # (Auto) 1.0 H (0.0-0.8) K/uL Eos # (Auto) 0.0 (0.0-0.7) K/uL Baso # (Auto) 0.0 (0.0-0.1) K/uL Nucleated RBC % 0.0 /100WBC Nucleated RBCs # 0 K/uL Sodium 137 (136-148) mmol/L Potassium 4.1 (3.5-5.1) mmol/L Chloride 99 (98-107) mmol/L Carbon Dioxide 23.9 (21.0-32.0) mmol/L BUN 21 H (7.0-18.0) mg/dL Creatinine 2.2 H (0.8-1.3) mg/dL Est Cr Clr Drug Dosing 50.34 mL/min Estimated GFR (MDRD) 32.8 ml/min Glucose 127 H (74-106) mg/dL Calcium 8.9 (8.5-10.1) mg/dL Total Bilirubin 0.8 (0.2-1.0) mg/dL AST 28 (15-37) IU/L ALT 35 (14-63) IU/L Alkaline Phosphatase 104 (46-116) U/L Troponin I < 0.050 (0.000-0.056) ng/mL Total Protein 8.1 (6.4-8.2) g/dL Albumin 4.2 (3.4-5.0) g/dL Globulin 3.9 (2.6-4.0) g/dL Albumin/Globulin Ratio 1.1 (0.9-1.6) Meds: Medications Generic Name Dose Route Start Last Admin Trade Name Shaan PRN Reason Stop Dose Admin Sodium Chloride 10 ml 09/07/21 20:41 09/07/21 22:21 Sodium Chloride 0.9% 10 Ml Syringe FLUSH 10 ml ASDIRECTED PRN Administration Keep Vein Open Sodium Chloride 2.5 ml 09/07/21 20:41 09/07/21 22:21 Sodium Chloride 0.9% 2.5 Ml Syringe FLUSH 2.5 ml ASDIRECTED PRN Administration Keep Vein Open Discontinued Medications Generic Name Dose Route Start Last Admin Trade Name Shaan PRN Reason Stop Dose Admin Sodium Chloride 1,000 mls @ 999 mls/hr 09/07/21 21:20 09/07/21 22:20 Normal Saline IV 09/07/21 22:20 999 mls/hr .Bolus ONE Administration Sodium Chloride 1,000 mls @ 999 mls/hr 09/07/21 23:08 09/07/21 23:18 Normal Saline IV 09/08/21 00:08 999 mls/hr .Bolus ONE Administration Ketorolac Tromethamine 15 mg 09/07/21 23:08 09/07/21 23:18 Ketorolac 15 Mg/Ml Sdv IVPUSH 09/07/21 23:09 15 mg Q6H STA Administration Lorazepam 1 mg 09/07/21 21:21 09/07/21 22:21 Lorazepam 2 Mg/Ml Sdv IVPUSH 09/07/21 21:22 1 mg ONETIME ONE Administration Lorazepam 1 mg 09/07/21 23:08 09/07/21 23:21 Lorazepam 2 Mg/Ml Sdv IVPUSH 09/07/21 23:09 1 mg ONETIME ONE Administration Departure - Departure Time of Disposition: 01:34 Disposition: Home, Self-Care 01 Condition: Good Clinical Impression: Methamphetamine use, Shortness of breath - Discharge Information Instructions: Shortness of Breath, Adult, [id number], Methamphetamines Use Disorder Referrals: PCP,None [Primary Care Provider] - Forms: ED Department Discharge Additional Instructions: You were seen and evaluated in ER today secondary to shortness of breath and methamphetamine use. Your blood tests have all been within normal limits. Please go home and get plenty rest and drink plenty of fluids. Please avoid using methamphetamines in the future. Please make an appointment see your family doctor in the next 1 to 2 days. The following information is given to patients seen in the emergency department who are being discharged to home. This information is to outline your options for follow-up care. We provide all patients seen in our emergency department with a follow-up referral. The need for follow-up, as well as the timing and circumstances, are variable depending upon the specifics of your emergency department visit. If you don't have a primary care physician on staff, we will provide you with a referral. We always advise you to contact your personal physician following an emergency department visit to inform them of the circumstance of the visit and for follow-up with them and/or the need for any referrals to a consulting specialist. The emergency department will also refer you to a specialist when appropriate. This referral assures that you have the opportunity for follow-up care with a specialist. All of these measure are taken in an effort to provide you with optimal care, which includes your follow-up. Under all circumstances we always encourage you to contact your private physician who remains a resource for coordinating your care. When calling for follow-up care, please make the office aware that this follow-up is from your recent emergency room visit. If for any reason you are refused follow-up, please contact the [facility] Emergency Department at and asked to speak to the emergency department charge nurse. [facility] - [facility] [address] [place] [id number] [address] Sepsis Event Note (ED) - Focused Exam Vital Signs: Vital Signs Temp Pulse Resp BP Pulse Ox 09/08/21 00:44 107 H 18 144/81 H 94 L 09/07/21 23:45 105 H 18 156/84 H 95 09/07/21 22:45 101 H 20 118/67 97 09/07/21 20:32 98.2 F 118 H 20 114/73 95 - My Orders Last 24 Hours: My Active Orders 09/07/21 20:41 Sodium Chloride 0.9% [Saline Flush] 10 ml FLUSH ASDIRECTED PRN Sodium Chloride 0.9% [Saline Flush] 2.5 ml FLUSH ASDIRECTED PRN Saline Lock Insert [OM.PC] Stat - Assessment/Plan Last 24 Hours: My Active Orders 09/07/21 20:41 Sodium Chloride 0.9% [Saline Flush] 10 ml FLUSH ASDIRECTED PRN Sodium Chloride 0.9% [Saline Flush] 2.5 ml FLUSH ASDIRECTED PRN Saline Lock Insert [OM.PC] Stat
[2021-09-07] MEDS ORDERED: Sodium Chloride 0.9% 1,000 ML IV ONE ×2 (21:20→23:08)
[2021-09-07] MEDS ORDERED: LORazepam 2 MG/ML SDV IVPUSH ONE ×2 (21:21→23:08)
--- NOTE | 2021-09-07 21:47 | CR ---
Indication: Shortness of breath Technique: Chest 1 view Comparison: Chest x-ray 04/12/2021 Findings/Impression: Cardiovascular and mediastinum: Heart size and vasculature are normal in caliber and appearance. Lungs and pleural space: Lungs are clear. No sign of infiltrate or mass. No sign of pleural effusion. No pneumothorax. Bones and soft tissues: No acute findings. Dictated by Dwayne Maldonado MD @ 09/07/2021 9:46:16 PM (Electronically Signed)
[2021-09-07 22:29] LABS: BLOOD UREA NITROGEN,BUN 21 mg/dL (7.0-18.0); CARBON DIOXIDE,CO2 23.9 mmol/L (21.0-32.0); CHLORIDE,CL 99 mmol/L (98-107); GLUCOSE RANDOM 127 mg/dL (74-106); POTASSIUM,K 4.1 mmol/L (3.5-5.1); SODIUM,NA 137 mmol/L (136-148)
[2021-09-07] MEDS ORDERED: Ketorolac 15 MG/ML SDV IVPUSH STA (23:08)
--- NOTE | 2021-09-11 03:38 | PCM.EKG ---
#1 Interpretation EKG Interpretation Comments: September 07, 2021 8:56 PM EKG: As interpreted by ER physician: Timothy: Nonspecific ST-T wave abnormalities Normal axis No evidence of ST elevation [place] Sinus tachycardia 121 bpm
== END 2021-09-08 01:59 | disposition home or self-care (01) ==
LOC: MW.ED 20:30
DX: R06.02 Shortness of breath (principal); F15.90 Other stimulant use, unspecified, uncomplicated; I10 Essential (primary) hypertension
CPT/HCPCS: 36415; 71045; 80053; 84484; 85025; 93005; 96374; 96375; 96376; 99285; J1885; J2060; J7030

== ENCOUNTER 2021-12-12 01:17 | Emergency (ER) | payer SELFPAY | END 2021-12-12 02:38 | disposition home or self-care (01) | LOC: MW.ED 01:17 | DX: F41.9 Anxiety disorder, unspecified (principal); I10 Essential (primary) hypertension; Z79.899 Other long term (current) drug therapy; Z87.891 Personal history of nicotine dependence | CPT/HCPCS: 99283 ==

== ENCOUNTER 2021-12-13 15:32 | Emergency (ER) | payer MEDICAID | END 2021-12-13 17:17 | LOC: MW.ED 15:32 | DX: Z02.89 Encounter for other administrative examinations (principal); I10 Essential (primary) hypertension | CPT/HCPCS: 99283 ==